=== PATIENT | male | born 1935 | race Caucasian/White ===

== ENCOUNTER 2020-06-22 10:30 | Outpatient (RCR) | payer MEDICARE, OTHER, SELFPAY ==
--- NOTE | 2020-06-07 07:53 | PT.OIE ---
Current Diagnoses Trochanteric bursitis, right hip (06/03/20) Trochanteric bursitis, left hip (06/03/20) Iliotibial band syndrome, right leg (06/03/20) Visit Care Team Role Provider Type Yasmin Yen Primary Care Provider Non-Staff Specialty: Medical Address: [address] , [place], [address] Email: Randall Reyna DO Attending Provider Non-Staff Referring Provider Specialty: Orthopedics Address: [address] [place] [address], [place], [address] Email: Physical Therapy Initial Evaluation PT-OP-A Visit Information Start: 06/06/20 13:57 Freq: Status: Active Protocol: Document 06/03/20 16:45 HH (Rec: 06/07/20 07:47 [email or web address]) Out-Patient Physical Therapy Visit Information Visit Information Visit Type Initial Evaluation Visit Start Time 16:45 Visit Stop Time 17:25 Total Visit Minutes 40 Visit Number 1 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 Symptoms started 3-4 months ago and his R calf and mandel tend to get sore after a long walk. He stated it feels like a strain and started at his calf first then slowly progress to his mandel recently. His symptoms has been getting worse after finishing a mile of walking and started having difficulty in driving move than 25 miles which he normally does once to twice a week. He denies any tingling and numbness sensation. Pt also had bilateral hip pain and was dx with bilateral bursitis who received cortisone bilaterally. He also had a R TKA previously. Pt likes to walk a mile a day and do semi squat exerecise as his home exercise program. Prior Treatments and Tests N/A Treatment Goals Patient/Caregiver Goals 1. to be able to walk without R leg pain 2. to be able to drive > 25 miles without R leg pain PT-OP-C Subjective Start: 06/06/20 13:57 Freq: Status: Active Protocol: Document 06/03/20 16:45 HH (Rec: 06/07/20 07:47 HH [email or web address]) Patient Questionnaires Lower Extremity Functional Scale LEFS Score 39 LEFS Impairment 40 to 59% Impaired (Score 32- 47) OP-PT Pain Assessment Location calf and mandel Pain Location Details R leg Intensity 3 Description Aching Frequency Frequent Pain Aggravating Factors Walking Pain Alleviating Factors Inactivity PT-OP-D Balance Start: 06/06/20 13:57 Freq: Status: Active Protocol: Document 06/03/20 16:45 HH (Rec: 06/06/20 14:22 [email or web address]) Balance Tests Single Limb Standing Single Limb- Right 0 Single Limb- Left 3 Other Other Balance Tests Performed significant R lateral trunk lean on RLE moderate L lateral trunk lean on LLE PT-OP-G Mobility & Gait Start: 06/06/20 13:57 Freq: Status: Active Protocol: Document 06/03/20 16:45 HH (Rec: 06/06/20 14:22 [email or web address]) OP Gait Assessment Gait Deviations General Gait Pattern Antalgic,Decreased Stride Length,Decreased Feet Clearance,Lateral Trunk Lean Comments Gait Comments +ve trendelenburg gait primarily on R hip. Significant L hip drop with R lateral trunk lean during RLE stance phase R foot clearance < L foot dec R heel strike and dec push on RLE PT-OP-H Neuro Start: 06/06/20 13:57 Freq: Status: Active Protocol: Document 06/03/20 16:45 HH (Rec: 06/06/20 14:22 HH [email or web address]) Deep Tendon Reflex & Clonus Assessment Deep Tendon Reflex Bilateral Achilles Deep Tendon Reflex 2+ Normal Bilateral Patellar Deep Tendon Reflex 1+ Diminished PT-OP-K Range of Motion Start: 06/06/20 13:57 Freq: Status: Active Protocol: Document 06/03/20 16:45 HH (Rec: 06/06/20 14:22 [email or web address]) Knee Goniometric Range of Motion Knee Right Knee ROM WFL Yes Patient Position Supine Extension Active (degrees) 3 Left Knee ROM WFL Yes Patient Position Supine Extension Active (degrees) 0 Ankle and Foot Goniometric Range of Motion Ankle and Foot Right Active Ankle/Foot ROM WFL Yes Left Active Ankle/Foot ROM WFL Yes PT-OP-L Special Tests Start: 06/06/20 13:57 Freq: Status: Active Protocol: Document 06/03/20 16:45 HH (Rec: 06/06/20 14:22 HH [email or web address]) Special Tests Hip Special Tests Trendelenberg Test Results +Ve on R PT-OP-M Strength Start: 06/06/20 13:57 Freq: Status: Active Protocol: Document 06/03/20 16:45 HH (Rec: 06/06/20 14:22 HH [email or web address]) Hip Strength Hip Manual Muscle Testing Right Flexion (L2) 4 Good Extension (S1) 4- Good- Abduction 3+ Fair+ Adduction 4- Good- External Rotation 4- Good- Left Flexion (L2) 4 Good Extension (S1) 4- Good- Abduction 4- Good- Adduction 4+ Good+ External Rotation 4 Good Internal Rotation 4 Good Knee Strength Knee Manual Muscle Testing Right Flexion (S2) 4+ Good+ Extension (L3) 4+ Good+ Left Flexion (S2) 4+ Good+ Extension (L3) 4+ Good+ Ankle/Foot Strength Ankle and Foot Manual Muscle Testing Left Dorsiflexion (L4) 4+ Good+ Plantarflexion (S1) 4+ Good+ Inversion 4+ Good+ Eversion (S1) 4+ Good+ Right Dorsiflexion (L4) 4+ Good+ Plantarflexion (S1) 4+ Good+ Inversion 4+ Good+ Eversion (S1) 4+ Good+ Comments tightness sensation noted at R calf PT-OP-Q Treatments Start: 06/06/20 13:57 Freq: Status: Active Protocol: Document 06/03/20 16:45 HH (Rec: 06/07/20 07:53 HH [email or web address]) Self-Care/Home Management Treatment Education Patient Education Home Exercise Program,Posture Other Education education on the importance of hip strength on single leg balance and gait mechanics. PT-OP-T Assessment and Plan Start: 06/06/20 13:57 Freq: Status: Active Protocol: Document 06/03/20 16:45 HH (Rec: 06/06/20 14:22 HH [email or web address]) Physical Therapy Assessment Rehab Potential Rehabilitation Potential Good Evaluation Complexity Number of Personal Factors/Comorbidities 1-2 Number of Body Systems Impaired 1-2 Clinical Presentation at Evaluation Stable Impairments Impairments Activity Tolerance,Balance, Functional Activities, Functional Mobility,Gait,Pain, Posture,ROM,Soft Tissue Mobility,Strength,Transfers Goals weak R hip Impairment weak R hip Short Term Goal (STG) Pt will improve 1/2 muscle grade of R hip stabilizers STG Duration 4 weeks Manager Immunology Goal (LTG) Pt will improve 1 full MMT grade of R hip stabilizer to optimize his gait efficiency and improve single leg balance LTG Duration 8 weeks driving Impairment pt has R leg pain after driving 25 miles [facility] Goal (LTG) pt will be pain and discomfort free for driving >25 miles to run his errands LTG Duration 8 weeks walking Impairment pt has RLE pain after his daily mile walk [facility] Goal (LTG) Pt will be pain and discomfort free for his daily one mile walk LTG Duration 8 weeks LEFS Impairment pt scores 39 on LEFs Short Term Goal (STG) Pt will score >50 and higher on LEFS STG Duration 4 weeks Manager Immunology Goal (LTG) pt will score >60 and higher on LEFS to improve his quality of life LTG Duration 8 weeks Assessment Summary Assessment This is a mod complexity for this 84 yo pleasant male here for calf and mandel pain primarily during walking with hx of R TKA. Upon assessment, pt presents mandel splint related symptoms who has significant weakness with R hip stabilizers (+ve trendelenburg sign) and R calf tightness. Dec R foot clearance (worse than L) and dec R heel strike and push off possibly d/t weak R hip abductors and lack of R full knee extension. This possibly increases muscular stress at anterior compartment of R leg . Pt will benefit from skilled therapy to improve his calf flexiblity, R hip stabilizer strength, RLE stability and strength, balance and gait quality in order for him to walk in community efficicently and without discomfort. Physical Therapy Plan Frequency and Duration Frequency of Treatment 2x/Week Duration of Treatment 8 weeks Plan of Care Start Date 06/06/20 Plan of Care End Date 08/05/20 Therapeutic Interventions Therapeutic Interventions Balance Training,Gait Training ,Home Exercise Program,Joint Mobilizations,Manual Therapy, Neuromuscular Re-education, Patient/Caregiver Education, Self-Care/Home Management, Taping,Therapeutic Activities, Therapeutic Exercises Modalities Cold Pack/Ice Massage,Electric Stimulation,Hot Packs Next Visit Focus/Plan Next Note Type Treatment Note Next Visit Plan can check single leg calf raise frequency for calf strength can check hip extension ROM give HEP: hip stabilizers strengthening in open chain, R TKE, calf raises, calf stretches
--- NOTE | 2020-06-07 07:54 | PT.OPPOC ---
Physical, Occupational & Speech Therapy At [facility] Current Diagnoses Trochanteric bursitis, right hip (06/03/20) Trochanteric bursitis, left hip (06/03/20) Iliotibial band syndrome, right leg (06/03/20) Visit Care Team Role Provider Type Yasmin Yen Primary Care Provider Non-Staff Specialty: Medical Address: [address], [place], [address] Email: Randall Reyna DO Attending Provider Non-Staff Referring Provider Specialty: Orthopedics Address: [address] [facility], [place], [address] Email: Plan Of Care PT-OP-T Assessment and Plan Start: 06/06/20 13:57 Freq: Status: Active Protocol: Document 06/03/20 16:45 (Rec: 06/06/20 14:22 HH [email or web address]) Physical Therapy Assessment Rehab Potential Rehabilitation Potential Good Evaluation Complexity Number of Personal Factors/Comorbidities 1-2 Number of Body Systems Impaired 1-2 Clinical Presentation at Evaluation Stable Impairments Impairments Activity Tolerance,Balance, Functional Activities, Functional Mobility,Gait,Pain, Posture,ROM,Soft Tissue Mobility,Strength,Transfers Goals weak R hip Impairment weak R hip Short Term Goal (STG) Pt will improve 1/2 muscle grade of R hip stabilizers STG Duration 4 weeks Tobacco Stemmer Goal (LTG) Pt will improve 1 full MMT grade of R hip stabilizer to optimize his gait efficiency and improve single leg balance LTG Duration 8 weeks driving Impairment pt has R leg pain after driving 25 miles [place] Goal (LTG) pt will be pain and discomfort free for driving >25 miles to run his errands LTG Duration 8 weeks walking Impairment pt has RLE pain after his daily mile walk [place] Goal (LTG) Pt will be pain and discomfort free for his daily one mile walk LTG Duration 8 weeks LEFS Impairment pt scores 39 on LEFs Short Term Goal (STG) Pt will score >50 and higher on LEFS STG Duration 4 weeks Half-Way Goal (LTG) pt will score >60 and higher on LEFS to improve his quality of life LTG Duration 8 weeks Assessment Summary Assessment This is a mod complexity for this 84 yo pleasant male here for calf and mandel pain primarily during walking with hx of R TKA. Upon assessment, pt presents mandel splint related symptoms who has significant weakness with R hip stabilizers (+ve trendelenburg sign) and R calf tightness. Dec R foot clearance (worse than L) and dec R heel strike and push off possibly d/t weak R hip abductors and lack of R full knee extension. This possibly increases muscular stress at anterior compartment of R leg . Pt will benefit from skilled therapy to improve his calf flexiblity, R hip stabilizer strength, RLE stability and strength, balance and gait quality in order for him to walk in community efficicently and without discomfort. Physical Therapy Plan Frequency and Duration Frequency of Treatment 2x/Week Duration of Treatment 8 weeks Plan of Care Start Date 06/06/20 Plan of Care End Date 08/05/20 Therapeutic Interventions Therapeutic Interventions Balance Training,Gait Training ,Home Exercise Program,Joint Mobilizations,Manual Therapy, Neuromuscular Re-education, Patient/Caregiver Education, Self-Care/Home Management, Taping,Therapeutic Activities, Therapeutic Exercises Modalities Cold Pack/Ice Massage,Electric Stimulation,Hot Packs Next Visit Focus/Plan Next Note Type Treatment Note Next Visit Plan can check single leg calf raise frequency for calf strength can check hip extension ROM give HEP: hip stabilizers strengthening in open chain, R TKE, calf raises, calf stretches Plan of Care Dates Plan of Care Start Date 06/06/20 Plan of Care End Date 08/05/20 Electronically Signed by: Ledy Parker PT 06/07/20 [id number] Please Sign and Return: I have reviewed this Plan of Care and certify that the skilled therapy services above are required to meet the patient?s needs. Physician Signature Date Printed Name and Credentials Clinical Instructor Signature Printed Name and Credentials
--- NOTE | 2020-06-07 09:45 | PT.OTN ---
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 Symptoms started 3-4 months ago and his R calf and mandel tend to get sore after a long walk. He stated it feels like a strain and started at his calf first then slowly progress to his mandle recently. His symptoms has been getting worse after finishing a mile of walking and started having difficulty in driving move than 25 miles which he normally does once to twice a week. He denies any tingling and numbness sensation. Pt also had bilateral hip pain and was dx with bilateral bursitis who received cortisone bilaterally. He also had a R TKA previously. Pt likes to walk a mile a day and do semi squat exerecise as his home exercise program. Prior Treatments and Tests N/A Treatment Goals Patient/Caregiver Goals 1. to be able to walk without R leg pain 2. to be able to drive > 25 miles without R leg pain PT-OP-C Subjective Start: 06/06/20 13:57 Freq: Status: Active Protocol: Document 06/07/20 09:01 SP (Rec: 06/07/20 10:00 SP [id number]) OP-PT Subjective Patient Comments Patient Comments Pt reports no complaints post last visit. Wants to get an HEP to help strengthen R thigh and leg. L mandel, lateral lower leg. PT-OP-D Balance Start: 06/06/20 13:57 Freq: Status: Active Protocol: Document 06/03/20 16:45 HH (Rec: 06/06/20 14:22 [email or web address]) Balance Tests Single Limb Standing Single Limb- Right 0 Single Limb- Left 3 Other Other Balance Tests Performed significant R lateral trunk lean on RLE moderate L lateral trunk lean on LLE PT-OP-G Mobility & Gait Start: 06/06/20 13:57 Freq: Status: Active Protocol: Document 06/03/20 16:45 HH (Rec: 06/06/20 14:22 [email or web address]) OP Gait Assessment Gait Deviations General Gait Pattern Antalgic,Decreased Stride Length,Decreased Feet Clearance,Lateral Trunk Lean Comments Gait Comments +ve trendelenburg gait primarily on R hip. Significant L hip drop with R lateral trunk lean during RLE stance phase R foot clearance < L foot dec R heel strike and dec push on RLE PT-OP-H Neuro Start: 06/06/20 13:57 Freq: Status: Active Protocol: Document 06/03/20 16:45 HH (Rec: 06/06/20 14:22 [email or web address]) Deep Tendon Reflex & Clonus Assessment Deep Tendon Reflex Bilateral Achilles Deep Tendon Reflex 2+ Normal Bilateral Patellar Deep Tendon Reflex 1+ Diminished PT-OP-K Range of Motion Start: 06/06/20 13:57 Freq: Status: Active Protocol: Document 06/03/20 16:45 HH (Rec: 06/06/20 14:22 [email or web address]) Knee Goniometric Range of Motion Knee Right Knee ROM WFL Yes Patient Position Supine Extension Active (degrees) 3 Left Knee ROM WFL Yes Patient Position Supine Extension Active (degrees) 0 Ankle and Foot Goniometric Range of Motion Ankle and Foot Right Active Ankle/Foot ROM WFL Yes Left Active Ankle/Foot ROM WFL Yes PT-OP-L Special Tests Start: 06/06/20 13:57 Freq: Status: Active Protocol: Document 06/03/20 16:45 HH (Rec: 06/06/20 14:22 [email or web address]) Special Tests Hip Special Tests Trendelenberg Test Results +Ve on R PT-OP-M Strength Start: 06/06/20 13:57 Freq: Status: Active Protocol: Document 06/03/20 16:45 HH (Rec: 06/06/20 14:22 HH [email or web address]) Hip Strength Hip Manual Muscle Testing Right Flexion (L2) 4 Good Extension (S1) 4- Good- Abduction 3+ Fair+ Adduction 4- Good- External Rotation 4- Good- Left Flexion (L2) 4 Good Extension (S1) 4- Good- Abduction 4- Good- Adduction 4+ Good+ External Rotation 4 Good Internal Rotation 4 Good Knee Strength Knee Manual Muscle Testing Right Flexion (S2) 4+ Good+ Extension (L3) 4+ Good+ Left Flexion (S2) 4+ Good+ Extension (L3) 4+ Good+ Ankle/Foot Strength Ankle and Foot Manual Muscle Testing Left Dorsiflexion (L4) 4+ Good+ Plantarflexion (S1) 4+ Good+ Inversion 4+ Good+ Eversion (S1) 4+ Good+ Right Dorsiflexion (L4) 4+ Good+ Plantarflexion (S1) 4+ Good+ Inversion 4+ Good+ Eversion (S1) 4+ Good+ Comments tightness sensation noted at R calf PT-OP-Q Treatments Start: 06/06/20 13:57 Freq: Status: Active Protocol: Document 06/07/20 09:01 SP (Rec: 06/07/20 10:00 SP [id number]) Cardio Equipment Recumbent Elliptical (VitalsGuard) Duration (Minutes) 6 Resistance 2 Seat Position 11 Therapeutic Exercises Sitting Exercises stick rolling Sitting Exercise Name ITB, personeal, tibialis, HS Side right Equipment Used rolling stick Reps/Minutes 1 min each area Comments pressure to tolerance DF, PF, EV R ankle band Side right Resistance L2 Reps/Minutes 10 Comments cued slow controlled con/ecc, proper set up/ form LAQ Side right Resistance AROM Reps/Minutes 10 Comments add HEP, cued slow controlled con/eccentric and thigh on table Standing Exercises sit to stands Standing Exercise Name arms across chest Side bilateral Resistance AOM Reps/Minutes x5 Comments cued slow descent PT-OP-T Assessment and Plan Start: 06/06/20 13:57 Freq: Status: Active Protocol: Document 06/07/20 09:01 SP (Rec: 06/07/20 10:00 SP [id number]) Physical Therapy Assessment Goals weak R hip Impairment weak R hip Short Term Goal (STG) Pt will improve 1/2 muscle grade of R hip stabilizers STG Duration 4 weeks Longterm Goal (LTG) Pt will improve 1 full MMT grade of R hip stabilizer to optimize his gait efficiency and improve single leg balance LTG Duration 8 weeks driving Impairment pt has R leg pain after driving 25 miles Longterm Goal (LTG) pt will be pain and discomfort free for driving >25 miles to run his errands LTG Duration 8 weeks walking Impairment pt has RLE pain after his daily mile walk [employer] Frequency Design Engineer Goal (LTG) Pt will be pain and discomfort free for his daily one mile walk LTG Duration 8 weeks LEFS Impairment pt scores 39 on LEFs Short Term Goal (STG) Pt will score >50 and higher on LEFS STG Duration 4 weeks [employer] Frequency Design Engineer Goal (LTG) pt will score >60 and higher on LEFS to improve his quality of life LTG Duration 8 weeks Assessment Summary Assessment Pt tolerated ther ex well. Pt reported HEP added today good focus for his goals of strengthening R LE. Noted compensations during DF and EV of R hip abd, and HS tension during LAQ, cuing for proper set up, slow controlled movement concentric/ eccentric directions for focused muscle activation. Good tolerance of self rolling to decrease ITB, DF flexibility. Physical Therapy Plan Frequency and Duration Frequency of Treatment 2x/Week Duration of Treatment 8 weeks Plan of Care Start Date 06/06/20 Plan of Care End Date 08/05/20 Therapeutic Interventions Therapeutic Interventions Balance Training,Gait Training ,Home Exercise Program,Joint Mobilizations,Manual Therapy, Neuromuscular Re-education, Patient/Caregiver Education, Self-Care/Home Management, Taping,Therapeutic Activities, Therapeutic Exercises Modalities Cold Pack/Ice Massage,Electric Stimulation,Hot Packs Next Visit Focus/Plan Next Note Type Treatment Note Next Visit Plan Assess response to last tx and added HEP. Next tx: can check single leg calf raise frequency for calf strength can check hip extension ROM give HEP: hip stabilizers strengthening in open chain, R TKE, calf raises, calf stretches
--- NOTE | 2020-06-10 09:48 | PT.OTN ---
Current Diagnoses Trochanteric bursitis, right hip (06/10/20) Trochanteric bursitis, left hip (06/10/20) Iliotibial band syndrome, right leg (06/10/20) Physical Therapy Treatment Note PT-OP-A Visit Information Start: 06/06/20 13:57 Freq: Status: Active Protocol: Document 06/10/20 08:58 HH (Rec: 06/10/20 09:47 [id number]) Out-Patient Physical Therapy Visit Information Visit Information Visit Type Treatment Note Visit Start Time 09:01 Visit Stop Time 09:45 Total Visit Minutes 44 Visit Number 3 Number of COLLEGE INTERN Visits 0 PT-OP-B Current Condition Start: 06/06/20 13:57 Freq: Status: Active Protocol: Document 06/03/20 16:45 HH (Rec: 06/07/20 07:47 [email or web address]) Current Condition History of Current Condition Onset Date 3-4 months ago Current Complaints calf and mandel pain upon walking, poor balance History of Current Condition Pt is a 84yo male here for R calf and mandel pain upon walking. Symptoms started 3-4 months ago and his R calf and mandel tend to get sore after a long walk. He stated it feels like a strain and started at his calf first then slowly progress to his mandel recently. His symptoms has been getting worse after finishing a mile of walking and started having difficulty in driving move than 25 miles which he normally does once to twice a week. He denies any tingling and numbness sensation. Pt also had bilateral hip pain and was dx with bilateral bursitis who received cortisone bilaterally. He also had a R TKA previously. Pt likes to walk a mile a day and do semi squat exerecise as his home exercise program. Prior Treatments and Tests N/A Treatment Goals Patient/Caregiver Goals 1. to be able to walk without R leg pain 2. to be able to drive > 25 miles without R leg pain PT-OP-C Subjective Start: 06/06/20 13:57 Freq: Status: Active Protocol: Document 06/10/20 08:58 HH (Rec: 06/10/20 09:47 [email or web address]) OP-PT Subjective Patient Comments Patient Comments Elizabeth been doing all my exercises and i started feeling my legs working. Patient Reported Progress Improving PT-OP-D Balance Start: 06/06/20 13:57 Freq: Status: Active Protocol: Document 06/03/20 16:45 HH (Rec: 06/06/20 14:22 [email or web address]) Balance Tests Single Limb Standing Single Limb- Right 0 Single Limb- Left 3 Other Other Balance Tests Performed significant R lateral trunk lean on RLE moderate L lateral trunk lean on LLE PT-OP-G Mobility & Gait Start: 06/06/20 13:57 Freq: Status: Active Protocol: Document 06/03/20 16:45 HH (Rec: 06/06/20 14:22 [email or web address]) OP Gait Assessment Gait Deviations General Gait Pattern Antalgic,Decreased Stride Length,Decreased Feet Clearance,Lateral Trunk Lean Comments Gait Comments +ve trendelenburg gait primarily on R hip. Significant L hip drop with R lateral trunk lean during RLE stance phase R foot clearance < L foot dec R heel strike and dec push on RLE PT-OP-H Neuro Start: 06/06/20 13:57 Freq: Status: Active Protocol: Document 06/03/20 16:45 HH (Rec: 06/06/20 14:22 [email or web address]) Deep Tendon Reflex & Clonus Assessment Deep Tendon Reflex Bilateral Achilles Deep Tendon Reflex 2+ Normal Bilateral Patellar Deep Tendon Reflex 1+ Diminished PT-OP-K Range of Motion Start: 06/06/20 13:57 Freq: Status: Active Protocol: Document 06/03/20 16:45 HH (Rec: 06/06/20 14:22 [email or web address]) Knee Goniometric Range of Motion Knee Right Knee ROM WFL Yes Patient Position Supine Extension Active (degrees) 3 Left Knee ROM WFL Yes Patient Position Supine Extension Active (degrees) 0 Ankle and Foot Goniometric Range of Motion Ankle and Foot Right Active Ankle/Foot ROM WFL Yes Left Active Ankle/Foot ROM WFL Yes PT-OP-L Special Tests Start: 06/06/20 13:57 Freq: Status: Active Protocol: Document 06/03/20 16:45 HH (Rec: 06/06/20 14:22 [email or web address]) Special Tests Hip Special Tests Trendelenberg Test Results +Ve on R PT-OP-M Strength Start: 06/06/20 13:57 Freq: Status: Active Protocol: Document 06/03/20 16:45 HH (Rec: 06/06/20 14:22 [email or web address]) Hip Strength Hip Manual Muscle Testing Right Flexion (L2) 4 Good Extension (S1) 4- Good- Abduction 3+ Fair+ Adduction 4- Good- External Rotation 4- Good- Left Flexion (L2) 4 Good Extension (S1) 4- Good- Abduction 4- Good- Adduction 4+ Good+ External Rotation 4 Good Internal Rotation 4 Good Knee Strength Knee Manual Muscle Testing Right Flexion (S2) 4+ Good+ Extension (L3) 4+ Good+ Left Flexion (S2) 4+ Good+ Extension (L3) 4+ Good+ Ankle/Foot Strength Ankle and Foot Manual Muscle Testing Left Dorsiflexion (L4) 4+ Good+ Plantarflexion (S1) 4+ Good+ Inversion 4+ Good+ Eversion (S1) 4+ Good+ Right Dorsiflexion (L4) 4+ Good+ Plantarflexion (S1) 4+ Good+ Inversion 4+ Good+ Eversion (S1) 4+ Good+ Comments tightness sensation noted at R calf PT-OP-Q Treatments Start: 06/06/20 13:57 Freq: Status: Active Protocol: Document 06/10/20 08:58 (Rec: 06/10/20 09:47 [id number]) Therapeutic Exercises Supine Exercises hamstring stretch Side bilateral Reps/Minutes 5 sec hold x 10 Comments significant tightness noted. Sidelying Exercises clamshell Side bilateral Reps/Minutes 8 x 2 Comments LLE is easier for pt, cues on avoiding lumbar rotatoin on RLE Sitting Exercises LAQ Side bilateral Reps/Minutes 10 x 2 Comments R hamstrings tightness noted, cues on prevent trunk extension Standing Exercises sagittal place weight shifting Standing Exercise Name A<>P Side bilateral Reps/Minutes 8 x2 calf raise Side bilateral Reps/Minutes 8 x2 Manual Therapy Treatment Soft Tissue Mobilization hamstrings Mobilization Type Rolling,Sustained Pressure, Trigger Point Release Intensity/Depth Moderate Body Position Hooklying ant tib Mobilization Type Rolling,Sustained Pressure, Trigger Point Release Intensity/Depth Moderate Body Position Supine PT-OP-T Assessment and Plan Start: 06/06/20 13:57 Freq: Status: Active Protocol: Document 06/10/20 08:58 (Rec: 06/10/20 09:47 [id number]) Physical Therapy Assessment Goals weak R hip Impairment weak R hip Short Term Goal (STG) Pt will improve 1/2 muscle grade of R hip stabilizers STG Duration 4 weeks Photographic Restorer Goal (LTG) Pt will improve 1 full MMT grade of R hip stabilizer to optimize his gait efficiency and improve single leg balance LTG Duration 8 weeks driving Impairment pt has R leg pain after driving 25 miles Senior Care Goal (LTG) pt will be pain and discomfort free for driving >25 miles to run his errands LTG Duration 8 weeks walking Impairment pt has RLE pain after his daily mile walk Senior Care Goal (LTG) Pt will be pain and discomfort free for his daily one mile walk LTG Duration 8 weeks LEFS Impairment pt scores 39 on LEFs Short Term Goal (STG) Pt will score >50 and higher on LEFS STG Duration 4 weeks Senior Care Goal (LTG) pt will score >60 and higher on LEFS to improve his quality of life LTG Duration 8 weeks Assessment Summary Assessment Significant posterior chain tightness noted that pt tends to rock backward during LAQ and supine hamstring stretch. Pt also got fatigue easily with LE exercises. Added clamshell to HEP for R hip strengthening. Physical Therapy Plan Next Visit Focus/Plan Next Note Type Treatment Note Next Visit Plan Assess response to last tx and added HEP. can check hip extension ROM give HEP: hip stabilizers strengthening in open chain, R TKE, calf raises, calf stretches, R hip strengthening, post chain flexibility.
--- NOTE | 2020-06-15 11:19 | PT.OTN ---
Current Diagnoses Trochanteric bursitis, right hip (06/15/20) Trochanteric bursitis, left hip (06/15/20) Iliotibial band syndrome, right leg (06/15/20) Physical Therapy Treatment Note PT-OP-A Visit Information Start: 06/06/20 13:57 Freq: Status: Active Protocol: Document 06/15/20 10:30 HH (Rec: 06/15/20 11:19 [id number]) Out-Patient Physical Therapy Visit Information Visit Information Visit Type Treatment Note Visit Start Time 10:30 Visit Stop Time 11:15 Total Visit Minutes 45 Visit Number 4 Number of ELECTRICAL MECHANIC Visits 0 PT-OP-B Current Condition Start: 06/06/20 13:57 Freq: Status: Active Protocol: Document 06/03/20 16:45 HH (Rec: 06/07/20 07:47 HH [email or web address]) Current Condition History of Current Condition Onset Date 3-4 months ago Current Complaints calf and mandel pain upon walking, poor balance History of Current Condition Pt is a 84yo male here for R calf and mandel pain upon walking. Symptoms started 3-4 months ago and his R calf and mandel tend to get sore after a long walk. He stated it feels like a strain and started at his calf first then slowly progress to his mandel recently. His symptoms has been getting worse after finishing a mile of walking and started having difficulty in driving move than 25 miles which he normally does once to twice a week. He denies any tingling and numbness sensation. Pt also had bilateral hip pain and was dx with bilateral bursitis who received cortisone bilaterally. He also had a R TKA previously. Pt likes to walk a mile a day and do semi squat exerecise as his home exercise program. Prior Treatments and Tests N/A Treatment Goals Patient/Caregiver Goals 1. to be able to walk without R leg pain 2. to be able to drive > 25 miles without R leg pain PT-OP-C Subjective Start: 06/06/20 13:57 Freq: Status: Active Protocol: Document 06/15/20 10:30 HH (Rec: 06/15/20 11:19 [id number]) OP-PT Subjective Patient Comments Patient Comments Elizabeth been doing all my exercises, I started walking 4 blocks every day since last week and i have no discomfort on my R leg. Patient Reported Progress Improving PT-OP-D Balance Start: 06/06/20 13:57 Freq: Status: Active Protocol: Document 06/03/20 16:45 HH (Rec: 06/06/20 14:22 [email or web address]) Balance Tests Single Limb Standing Single Limb- Right 0 Single Limb- Left 3 Other Other Balance Tests Performed significant R lateral trunk lean on RLE moderate L lateral trunk lean on LLE PT-OP-G Mobility & Gait Start: 06/06/20 13:57 Freq: Status: Active Protocol: Document 06/03/20 16:45 HH (Rec: 06/06/20 14:22 [email or web address]) OP Gait Assessment Gait Deviations General Gait Pattern Antalgic,Decreased Stride Length,Decreased Feet Clearance,Lateral Trunk Lean Comments Gait Comments +ve trendelenburg gait primarily on R hip. Significant L hip drop with R lateral trunk lean during RLE stance phase R foot clearance < L foot dec R heel strike and dec push on RLE PT-OP-H Neuro Start: 06/06/20 13:57 Freq: Status: Active Protocol: Document 06/03/20 16:45 HH (Rec: 06/06/20 14:22 [email or web address]) Deep Tendon Reflex & Clonus Assessment Deep Tendon Reflex Bilateral Achilles Deep Tendon Reflex 2+ Normal Bilateral Patellar Deep Tendon Reflex 1+ Diminished PT-OP-K Range of Motion Start: 06/06/20 13:57 Freq: Status: Active Protocol: Document 06/03/20 16:45 HH (Rec: 06/06/20 14:22 [email or web address]) Knee Goniometric Range of Motion Knee Right Knee ROM WFL Yes Patient Position Supine Extension Active (degrees) 3 Left Knee ROM WFL Yes Patient Position Supine Extension Active (degrees) 0 Ankle and Foot Goniometric Range of Motion Ankle and Foot Right Active Ankle/Foot ROM WFL Yes Left Active Ankle/Foot ROM WFL Yes PT-OP-L Special Tests Start: 06/06/20 13:57 Freq: Status: Active Protocol: Document 06/03/20 16:45 HH (Rec: 06/06/20 14:22 [email or web address]) Special Tests Hip Special Tests Trendelenberg Test Results +Ve on R PT-OP-M Strength Start: 06/06/20 13:57 Freq: Status: Active Protocol: Document 06/03/20 16:45 HH (Rec: 06/06/20 14:22 HH [email or web address]) Hip Strength Hip Manual Muscle Testing Right Flexion (L2) 4 Good Extension (S1) 4- Good- Abduction 3+ Fair+ Adduction 4- Good- External Rotation 4- Good- Left Flexion (L2) 4 Good Extension (S1) 4- Good- Abduction 4- Good- Adduction 4+ Good+ External Rotation 4 Good Internal Rotation 4 Good Knee Strength Knee Manual Muscle Testing Right Flexion (S2) 4+ Good+ Extension (L3) 4+ Good+ Left Flexion (S2) 4+ Good+ Extension (L3) 4+ Good+ Ankle/Foot Strength Ankle and Foot Manual Muscle Testing Left Dorsiflexion (L4) 4+ Good+ Plantarflexion (S1) 4+ Good+ Inversion 4+ Good+ Eversion (S1) 4+ Good+ Right Dorsiflexion (L4) 4+ Good+ Plantarflexion (S1) 4+ Good+ Inversion 4+ Good+ Eversion (S1) 4+ Good+ Comments tightness sensation noted at R calf PT-OP-Q Treatments Start: 06/06/20 13:57 Freq: Status: Active Protocol: Document 06/15/20 10:30 HH (Rec: 06/15/20 11:19 HH [id number]) Cardio Equipment Recumbent Stepper (Sci-Fit) Duration (Minutes) 6 Resistance 3 Seat Position 3 Gym Equipment Shuttle Recovery SL squat Details SL squat Resistance #50 Shuttle Recovery Platform Stable Reps/Time 10 x2 Therapeutic Exercises Supine Exercises hamstring stretch Side bilateral Reps/Minutes 5 sec hold x 10 Comments significant tightness noted. Sidelying Exercises clamshell Side bilateral Reps/Minutes 8 x 2 Comments LLE is easier for pt, cues on avoiding lumbar rotatoin on RLE Standing Exercises marching in plcae Standing Exercise Name on almendarez pad without support Side bilateral Equipment Used almendarez pad Reps/Minutes 2 mins Comments slight marching in place ankle board Standing Exercise Name DF and PF Side bilateral Equipment Used ankle board Reps/Minutes 2 mins Comments unsupported sagittal place weight shifting Standing Exercise Name A<>P staggered stance to tap pole Side bilateral Reps/Minutes 20 x 2 Comments RLE is less stable calf raise Side bilateral Reps/Minutes 8 x2 Manual Therapy Treatment Soft Tissue Mobilization R gluteal Body Location R glute med, max and piriformis Mobilization Type Sustained Pressure,Trigger Point Release Intensity/Depth Moderate Body Position Sidelying PT-OP-T Assessment and Plan Start: 06/06/20 13:57 Freq: Status: Active Protocol: Document 06/15/20 10:30 HH (Rec: 06/15/20 11:19 HH [id number]) Physical Therapy Assessment Goals weak R hip Impairment weak R hip Short Term Goal (STG) Pt will improve 1/2 muscle grade of R hip stabilizers STG Duration 4 weeks Furniture Refinisher Goal (LTG) Pt will improve 1 full MMT grade of R hip stabilizer to optimize his gait efficiency and improve single leg balance LTG Duration 8 weeks driving Impairment pt has R leg pain after driving 25 miles Jail Goal (LTG) pt will be pain and discomfort free for driving >25 miles to run his errands LTG Duration 8 weeks walking Impairment pt has RLE pain after his daily mile walk Jail Goal (LTG) Pt will be pain and discomfort free for his daily one mile walk LTG Duration 8 weeks LEFS Impairment pt scores 39 on LEFs Short Term Goal (STG) Pt will score >50 and higher on LEFS STG Duration 4 weeks Jail Goal (LTG) pt will score >60 and higher on LEFS to improve his quality of life LTG Duration 8 weeks Assessment Summary Assessment Pt cont progress and started his daily walking rountine up to 4 blocks without discomfort . There's noticeable muscle tenderness at R glutes and piriformis. Will cont progress as karine and focus on R hip stabilizers strengthening. will add gait training to address trendelenburg sign. Physical Therapy Plan Next Visit Focus/Plan Next Note Type Treatment Note Next Visit Plan Assess response to last tx and added HEP for R hip stability . can check hip extension ROM give HEP: hip stabilizers strengthening in open chain, R TKE, calf raises, calf stretches, R hip strengthening, post chain flexibility. gait training
--- NOTE | 2020-06-18 09:05 | PT.OTN ---
Current Diagnoses Trochanteric bursitis, right hip (06/18/20) Trochanteric bursitis, left hip (06/18/20) Iliotibial band syndrome, right leg (06/18/20) Physical Therapy Treatment Note PT-OP-A Visit Information Start: 06/06/20 13:57 Freq: Status: Active Protocol: Document 06/18/20 08:10 SP (Rec: 06/18/20 11:18 SP [id number]) Out-Patient Physical Therapy Visit Information Visit Information Visit Type Treatment Note Visit Start Time 08:10 Visit Stop Time 09:05 Total Visit Minutes 55 Visit Number 5 Number of BREAKER UP MACHINE OPERATOR Visits 1 PT-OP-B Current Condition Start: 06/06/20 13:57 Freq: Status: Active Protocol: Document 06/03/20 16:45 HH (Rec: 06/07/20 07:47 HH [email or web address]) Current Condition History of Current Condition Onset Date 3-4 months ago Current Complaints calf and mandel pain upon walking, poor balance History of Current Condition Pt is a 84yo male here for R calf and mandel pain upon walking. Symptoms started 3-4 months ago and his R calf and mandel tend to get sore after a long walk. He stated it feels like a strain and started at his calf first then slowly progress to his mandel recently. His symptoms has been getting worse after finishing a mile of walking and started having difficulty in driving move than 25 miles which he normally does once to twice a week. He denies any tingling and numbness sensation. Pt also had bilateral hip pain and was dx with bilateral bursitis who received cortisone bilaterally. He also had a R TKA previously. Pt likes to walk a mile a day and do semi squat exerecise as his home exercise program. Prior Treatments and Tests N/A Treatment Goals Patient/Caregiver Goals 1. to be able to walk without R leg pain 2. to be able to drive > 25 miles without R leg pain PT-OP-C Subjective Start: 06/06/20 13:57 Freq: Status: Active Protocol: Document 06/18/20 08:10 SP (Rec: 06/18/20 11:18 SP [id number]) OP-PT Subjective Patient Comments Patient Comments Pt stated is actually walking about [address] PT-OP-D Balance Start: 06/06/20 13:57 Freq: Status: Active Protocol: Document 06/03/20 16:45 HH (Rec: 06/06/20 14:22 [email or web address]) Balance Tests Single Limb Standing Single Limb- Right 0 Single Limb- Left 3 Other Other Balance Tests Performed significant R lateral trunk lean on RLE moderate L lateral trunk lean on LLE PT-OP-G Mobility & Gait Start: 06/06/20 13:57 Freq: Status: Active Protocol: Document 06/03/20 16:45 HH (Rec: 06/06/20 14:22 [email or web address]) OP Gait Assessment Gait Deviations General Gait Pattern Antalgic,Decreased Stride Length,Decreased Feet Clearance,Lateral Trunk Lean Comments Gait Comments +ve trendelenburg gait primarily on R hip. Significant L hip drop with R lateral trunk lean during RLE stance phase R foot clearance < L foot dec R heel strike and dec push on RLE PT-OP-H Neuro Start: 06/06/20 13:57 Freq: Status: Active Protocol: Document 06/03/20 16:45 HH (Rec: 06/06/20 14:22 [email or web address]) Deep Tendon Reflex & Clonus Assessment Deep Tendon Reflex Bilateral Achilles Deep Tendon Reflex 2+ Normal Bilateral Patellar Deep Tendon Reflex 1+ Diminished PT-OP-K Range of Motion Start: 06/06/20 13:57 Freq: Status: Active Protocol: Document 06/03/20 16:45 HH (Rec: 06/06/20 14:22 [email or web address]) Knee Goniometric Range of Motion Knee Right Knee ROM WFL Yes Patient Position Supine Extension Active (degrees) 3 Left Knee ROM WFL Yes Patient Position Supine Extension Active (degrees) 0 Ankle and Foot Goniometric Range of Motion Ankle and Foot Right Active Ankle/Foot ROM WFL Yes Left Active Ankle/Foot ROM WFL Yes PT-OP-L Special Tests Start: 06/06/20 13:57 Freq: Status: Active Protocol: Document 06/03/20 16:45 HH (Rec: 06/06/20 14:22 [email or web address]) Special Tests Hip Special Tests Trendelenberg Test Results +Ve on R PT-OP-M Strength Start: 06/06/20 13:57 Freq: Status: Active Protocol: Document 06/03/20 16:45 HH (Rec: 06/06/20 14:22 HH [email or web address]) Hip Strength Hip Manual Muscle Testing Right Flexion (L2) 4 Good Extension (S1) 4- Good- Abduction 3+ Fair+ Adduction 4- Good- External Rotation 4- Good- Left Flexion (L2) 4 Good Extension (S1) 4- Good- Abduction 4- Good- Adduction 4+ Good+ External Rotation 4 Good Internal Rotation 4 Good Knee Strength Knee Manual Muscle Testing Right Flexion (S2) 4+ Good+ Extension (L3) 4+ Good+ Left Flexion (S2) 4+ Good+ Extension (L3) 4+ Good+ Ankle/Foot Strength Ankle and Foot Manual Muscle Testing Left Dorsiflexion (L4) 4+ Good+ Plantarflexion (S1) 4+ Good+ Inversion 4+ Good+ Eversion (S1) 4+ Good+ Right Dorsiflexion (L4) 4+ Good+ Plantarflexion (S1) 4+ Good+ Inversion 4+ Good+ Eversion (S1) 4+ Good+ Comments tightness sensation noted at R calf PT-OP-Q Treatments Start: 06/06/20 13:57 Freq: Status: Active Protocol: Document 06/18/20 08:10 SP (Rec: 06/18/20 11:18 SP [id number]) Cardio Equipment Recumbent Stepper (Sci-Fit) Duration (Minutes) 6 Resistance 3 Seat Position 11 Gym Equipment Shuttle Recovery SL squat Details SL squat Resistance #50 Shuttle Recovery Platform Stable Reps/Time 10 x2 Therapeutic Exercises Supine Exercises hamstring stretch Side bilateral Equipment Used strap Reps/Minutes 30 x2 Comments significant tightness noted, cued knee ext/ PF awarness for HS focus Sidelying Exercises clamshell Side bilateral Equipment Used Lv 1 Reps/Minutes 10 x 2 Comments B fairly equal for pt, cues on avoiding lumbar rotatoin on RLE Sitting Exercises glut/ PF stretch Sitting Exercise Name IR/ ER Reps/Minutes 20sec hold x2 Comments cued ease in/out and gentle support, no over pressure to hip Standing Exercises marching in plcae Standing Exercise Name on almendarez pad without support Side bilateral Equipment Used almendarez pad, at //bar Reps/Minutes 2 mins Comments slight marching in place sagittal place weight shifting Standing Exercise Name A<>P staggered stance to tap pole Side bilateral Equipment Used @ //bar Reps/Minutes 20 x 2 Comments LLE is less stable, cued upright posture and quad facilitation calf raise Side bilateral Equipment Used rail, MARSHALL Reps/Minutes 8 x2 Comments cued contact other LE on floor PT-OP-T Assessment and Plan Start: 06/06/20 13:57 Freq: Status: Active Protocol: Document 06/18/20 08:10 SP (Rec: 06/18/20 11:18 SP [id number]) Physical Therapy Assessment Goals weak R hip Impairment weak R hip Short Term Goal (STG) Pt will improve 1/2 muscle grade of R hip stabilizers STG Duration 4 weeks Centrifugal Chiller Technician Goal (LTG) Pt will improve 1 full MMT grade of R hip stabilizer to optimize his gait efficiency and improve single leg balance LTG Duration 8 weeks driving Impairment pt has R leg pain after driving 25 miles Centrifugal Chiller Technician Goal (LTG) pt will be pain and discomfort free for driving >25 miles to run his errands LTG Duration 8 weeks walking Impairment pt has RLE pain after his daily mile walk Half-Way Goal (LTG) Pt will be pain and discomfort free for his daily one mile walk LTG Duration 8 weeks LEFS Impairment pt scores 39 on LEFs Short Term Goal (STG) Pt will score >50 and higher on LEFS STG Duration 4 weeks Centrifugal Chiller Technician Goal (LTG) pt will score >60 and higher on LEFS to improve his quality of life LTG Duration 8 weeks Assessment Summary Assessment Tx focused on added LE flexibility supine/standing/ seated, hip strengthening with HEP review. Cued for glut facilitation and level pelvis during uneven marching with improvement noted and good feedback self awareness. Will continue to progress strengthening. Physical Therapy Plan Frequency and Duration Frequency of Treatment 2x/Week Duration of Treatment 8 weeks Plan of Care Start Date 06/06/20 Plan of Care End Date 08/05/20 Therapeutic Interventions Therapeutic Interventions Balance Training,Gait Training ,Home Exercise Program,Joint Mobilizations,Manual Therapy, Neuromuscular Re-education, Patient/Caregiver Education, Self-Care/Home Management, Taping,Therapeutic Activities, Therapeutic Exercises Modalities Cold Pack/Ice Massage,Electric Stimulation,Hot Packs Next Visit Focus/Plan Next Note Type Treatment Note Next Visit Plan Assess response to last tx, added HEP for R hip stretching and HEP review added Tb loop to clam shells. Continue per PT POC: Can check hip extension ROM give HEP: hip stabilizers strengthening in open chain, R TKE, calf raises, calf stretches, R hip strengthening, post chain flexibility. gait training
--- NOTE | 2020-06-22 10:58 | PT.OTN ---
Current Diagnoses Trochanteric bursitis, right hip (06/22/20) Trochanteric bursitis, left hip (06/22/20) Iliotibial band syndrome, right leg (06/22/20) Physical Therapy Treatment Note PT-OP-A Visit Information Start: 06/06/20 13:57 Freq: Status: Active Protocol: Document 06/22/20 10:34 HH (Rec: 06/22/20 10:58 [id number]) Out-Patient Physical Therapy Visit Information Visit Information Visit Type Discharge Summary Visit Start Time 10:42 Visit Stop Time 10:55 Total Visit Minutes 13 Visit Number 6 Number of INSURANCE CONSULTANT Visits 0 PT-OP-B Current Condition Start: 06/06/20 13:57 Freq: Status: Active Protocol: Document 06/03/20 16:45 HH (Rec: 06/07/20 07:47 [email or web address]) Current Condition History of Current Condition Onset Date 3-4 months ago Current Complaints calf and mandel pain upon walking, poor balance History of Current Condition Pt is a 84yo male here for R calf and mandel pain upon walking. Symptoms started 3-4 months ago and his R calf and mandel tend to get sore after a long walk. He stated it feels like a strain and started at his calf first then slowly progress to his mandel recently. His symptoms has been getting worse after finishing a mile of walking and started having difficulty in driving move than 25 miles which he normally does once to twice a week. He denies any tingling and numbness sensation. Pt also had bilateral hip pain and was dx with bilateral bursitis who received cortisone bilaterally. He also had a R TKA previously. Pt likes to walk a mile a day and do semi squat exerecise as his home exercise program. Prior Treatments and Tests N/A Treatment Goals Patient/Caregiver Goals 1. to be able to walk without R leg pain 2. to be able to drive > 25 miles without R leg pain PT-OP-C Subjective Start: 06/06/20 13:57 Freq: Status: Active Protocol: Document 06/22/20 10:34 HH (Rec: 06/22/20 10:58 [id number]) OP-PT Subjective Patient Comments Patient Comments Im doing so much better and i did a 4 hours driving trip this weekend and i had no problem. And i have been walking more as well. I think i am ready to be d/c . Patient Reported Progress Improving PT-OP-D Balance Start: 06/06/20 13:57 Freq: Status: Active Protocol: Document 06/03/20 16:45 HH (Rec: 06/06/20 14:22 [email or web address]) Balance Tests Single Limb Standing Single Limb- Right 0 Single Limb- Left 3 Other Other Balance Tests Performed significant R lateral trunk lean on RLE moderate L lateral trunk lean on LLE PT-OP-G Mobility & Gait Start: 06/06/20 13:57 Freq: Status: Active Protocol: Document 06/03/20 16:45 HH (Rec: 06/06/20 14:22 [email or web address]) OP Gait Assessment Gait Deviations General Gait Pattern Antalgic,Decreased Stride Length,Decreased Feet Clearance,Lateral Trunk Lean Comments Gait Comments +ve trendelenburg gait primarily on R hip. Significant L hip drop with R lateral trunk lean during RLE stance phase R foot clearance < L foot dec R heel strike and dec push on RLE PT-OP-H Neuro Start: 06/06/20 13:57 Freq: Status: Active Protocol: Document 06/03/20 16:45 HH (Rec: 06/06/20 14:22 [email or web address]) Deep Tendon Reflex & Clonus Assessment Deep Tendon Reflex Bilateral Achilles Deep Tendon Reflex 2+ Normal Bilateral Patellar Deep Tendon Reflex 1+ Diminished PT-OP-K Range of Motion Start: 06/06/20 13:57 Freq: Status: Active Protocol: Document 06/03/20 16:45 HH (Rec: 06/06/20 14:22 [email or web address]) Knee Goniometric Range of Motion Knee Right Knee ROM WFL Yes Patient Position Supine Extension Active (degrees) 3 Left Knee ROM WFL Yes Patient Position Supine Extension Active (degrees) 0 Ankle and Foot Goniometric Range of Motion Ankle and Foot Right Active Ankle/Foot ROM WFL Yes Left Active Ankle/Foot ROM WFL Yes PT-OP-L Special Tests Start: 06/06/20 13:57 Freq: Status: Active Protocol: Document 06/03/20 16:45 HH (Rec: 06/06/20 14:22 [email or web address]) Special Tests Hip Special Tests Trendelenberg Test Results +Ve on R PT-OP-M Strength Start: 06/06/20 13:57 Freq: Status: Active Protocol: Document 06/03/20 16:45 HH (Rec: 06/06/20 14:22 [email or web address]) Hip Strength Hip Manual Muscle Testing Right Flexion (L2) 4 Good Extension (S1) 4- Good- Abduction 3+ Fair+ Adduction 4- Good- External Rotation 4- Good- Left Flexion (L2) 4 Good Extension (S1) 4- Good- Abduction 4- Good- Adduction 4+ Good+ External Rotation 4 Good Internal Rotation 4 Good Knee Strength Knee Manual Muscle Testing Right Flexion (S2) 4+ Good+ Extension (L3) 4+ Good+ Left Flexion (S2) 4+ Good+ Extension (L3) 4+ Good+ Ankle/Foot Strength Ankle and Foot Manual Muscle Testing Left Dorsiflexion (L4) 4+ Good+ Plantarflexion (S1) 4+ Good+ Inversion 4+ Good+ Eversion (S1) 4+ Good+ Right Dorsiflexion (L4) 4+ Good+ Plantarflexion (S1) 4+ Good+ Inversion 4+ Good+ Eversion (S1) 4+ Good+ Comments tightness sensation noted at R calf PT-OP-Q Treatments Start: 06/06/20 13:57 Freq: Status: Active Protocol: Document 06/22/20 10:34 (Rec: 06/22/20 10:58 [id number]) Self-Care/Home Management Treatment Education Patient Education Home Exercise Program Other Education review all HEP for maintainence purpose. ankle eversion, LAQ, calf stretch and HS stretch PT-OP-T Assessment and Plan Start: 06/06/20 13:57 Freq: Status: Active Protocol: Document 06/22/20 10:34 (Rec: 06/22/20 10:58 [id number]) Physical Therapy Assessment Goals weak R hip Impairment weak R hip Short Term Goal (STG) Pt will improve 1/2 muscle grade of R hip stabilizers STG Duration 4 weeks Mcfp Goal (LTG) Pt will improve 1 full MMT grade of R hip stabilizer to optimize his gait efficiency and improve single leg balance LTG Duration 8 weeks driving Impairment pt has R leg pain after driving 25 miles Mcfp Goal (LTG) 06/22 goal met Pt drove 4 hours this weekend without discomfort pt will be pain and discomfort free for driving >25 miles to run his errands LTG Duration 8 weeks walking Impairment pt has RLE pain after his daily mile walk [employer] [place] Goal (LTG) 06/22 goal met Pt is pain and discomfort free for his daily one mile walk LTG Duration 8 weeks LEFS Impairment pt scores 39 on LEFs Short Term Goal (STG) Pt will score >50 and higher on LEFS STG Duration 4 weeks Mcfp Goal (LTG) pt will score >60 and higher on LEFS to improve his quality of life LTG Duration 8 weeks Progress Towards Goals Progress Towards Goals Goals Met Assessment Summary Assessment Pt met all his goals and currently discomfort free for all his driving and walking activities. Reviewed all HEP today and pt shows good understanding. Pt requested to be d/c from therapy. Physical Therapy Plan Discharge Physical Therapy Discharge Reasons Goals Met
== END 2020-06-23 10:52 | disposition home or self-care (01) ==
LOC: PHYS 10:30
PROVIDERS: PCP Family Medicine; Referring Provider Orthopaedic Surgery; Visit Provider Orthopaedic Surgery
DX: M70.61 Trochanteric bursitis, right hip (principal); M70.62 Trochanteric bursitis, left hip; M76.31 Iliotibial band syndrome, right leg
CPT/HCPCS: 97110; 97140; 97162; 97535

== ENCOUNTER 2024-03-11 09:37 | Observation (INO) | payer MEDICARE, OTHER, SELFPAY ==
[2024-03-11] VITALS (23 sets, daily range): BP systolic 96–161; BP diastolic 46–68; PULSE 50–63; RESP 14–25; TEMP 36.1–37; O2SAT 94–99; BMI 23.3
--- NOTE | 2024-03-11 09:52 | ED_ITS ---
HPI - Dizziness General Chief Complaint: Syncope Stated Complaint: Syncopal episode Time Seen by Provider: 03/11/24 09:44 Source: patient and EMS Mode of arrival: EMS History of Present Illness HPI Narrative: Patient brought in by ambulance from home for episode of near-syncope/dizziness. Blood sugar 88. Patient states he remained awake the entire event. He states he remember taking a cold medication and half prior to arrival but he had this yesterday without any difficulty. Went to the kitchen and felt very dizzy. He brought himself to the floor. at his side. 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 No seizure activity. No numbness tingling weakness slurred speech or facial droop. No headache. states his heart rate was in the 40s. Blood pressure at home systolic 88. No significant change with EMS on their arrival. Patient offers no complaints at this time. Is not on a beta-clari. Denies any medical problems. No recent illness. He took the cold medication because his right ear felt plugged. No black or bloody stools. No chest pain no shortness of breath. No palpitations. states his heart rate is usually in the 70 Related Data Home Medications Medication Instructions Recorded Confirmed famotidine 20 mg tablet (Pepcid) 20 mg PO DAILY 05/03/18 05/03/18 lorazepam 2 mg tablet 1 mg PO BEDTIME PRN 05/03/18 05/03/18 Previous Rx's Medication Instructions Recorded polymyxin B sulfate 10,000 2 drop ophthalmic (eye) QID #10 mL 05/03/18 unit-trimethoprim 1 mg/mL eye drops (Polytrim) Allergies Allergy/AdvReac Type Severity Reaction Status Date / Time acetaminophen Allergy Severe passed out Verified 05/03/18 08:23 [From Darvocet-N] hydromorphone [From Dilaudid] Allergy Severe Anaphylaxis Verified 05/03/18 08:23 propoxyphene Allergy Severe passed out Verified 05/03/18 08:23 [From Darvocet-N] Review of Systems Review of Systems Narrative: GENERAL: negative chills, fatigue, malaise, fever, sweats. HEENT: negative sinus pain, ear pain, sore throat RESPIRATORY: negative dyspnea, cough CARDIOVASCULAR: negative chest pain, palpitations GASTROINTESTINAL: negative nausea, vomiting, abdominal pain : negative dysuria, frequency, hematuria MUSCULOSKELETAL: negative muscle or bony pain SKIN: negative rash, skin lesions NEUROLOGIC: negative weakness, numbness, positive dizziness ROS Unobtainable: All systems reviewed & are unremarkable except as noted in HPI and below Patient History Social History household members: spouse Smoking Status: Never smoker Smoking Status: Never smoker alcohol intake frequency: holidays/special occasions only Substance Use Type: does not use Exam Narrative Exam Narrative: GENERAL: in no distress, not toxic not dyspneic HEAD: Normocephalic. EYES: Pupils equal round ENT: Mucous membranes moist. NECK: Trachea midline. CARDIOVASCULAR: Regular rate and rhythm, bradycardic RESPIRATORY: Clear to auscultation. Breath sounds equal bilaterally. No wheezes, rales, or rhonchi. GASTROINTESTINAL: Abdomen soft, non-tender EXTREMITIES: No gross deformities. BACK: No flank tenderness. NEURO: AOx4. SKIN: Warm and dry PSYCH: Not anxious, is cooperative Initial Vital Signs Initial Vital Signs: Vital Signs Temperature 98.6 F 03/11/24 09:41 Pulse Rate 51 L 03/11/24 09:41 Respiratory Rate 19 03/11/24 09:41 Blood Pressure 147/65 H 03/11/24 09:41 Pulse Oximetry 99 03/11/24 09:41 Oxygen Delivery Method Room Air 03/11/24 09:41 Course Orders Ordered: ED Orders 03/11/24 09:41 Complete Blood Count AUTO DIFF Stat Comprehensive Metabolic Panel Stat Prothrombin Time INR Stat Troponin I Stat 03/11/24 09:50 CT angio head and neck Stat EKG-12 Lead Stat 03/11/24 09:51 CT head/brain wo con Stat XR chest 1V Stat 03/11/24 13:05 EC echo doppler complete Stat Atropine Sulfate (Atropine 1 Mg/10 Ml Syringe) 0.5 mg IV PRN PRN PRN Reason: HR <40 with symptoms Enoxaparin Sodium (Enoxaparin 40 Mg/0.4 Ml Syringe) 40 mg SUBCUT DAILY LISSETTE Lorazepam (Lorazepam 1 Mg Tablet) 1 mg PO BEDTIME PRN PRN Reason: anxiety Melatonin (Melatonin 3 Mg Tablet) 6 mg PO BEDTIME PRN PRN Reason: Insomnia Naloxone HCl (Naloxone 0.4 Mg/Ml Vial) 0.2 mg IV Q2MIN PRN PRN Reason: Opiate Reversal Ondansetron HCl (Ondansetron 4 Mg/2 Ml Inj) 4 mg IV Q4HR PRN PRN Reason: Nausea And Vomiting Polyethylene Glycol (Polyethylene Glycol 3350 17 Gm Powd.Pack) 17 gm PO DAILY PRN PRN Reason: Constipation Sennosides (Sennosides 8.6 Mg Tablet) 8.6 mg PO BID PRN PRN Reason: Constipation Discontinued Medications Sodium Chloride (Normal Saline 0.9%) 500 mls @ 1,000 mls/hr IV BOLUS ONE Stop: 03/11/24 10:20 Last Infusion: 03/11/24 10:30 Dose: Infused Documented By: Admin: 03/11/24 10:02 Dose: 1,000 mls/hr Documented By: SHWETHA Vital Signs Vital signs: Vital Signs - 8 hr 03/11/24 11:59 03/11/24 12:03 03/11/24 12:29 Temperature 98 F Pulse Rate 54 L 53 L Respiratory Rate 23 14 Blood Pressure 129/61 126/60 Pulse Oximetry 98 96 Oxygen Delivery Method Room Air 03/11/24 12:29 03/11/24 12:30 03/11/24 12:31 Temperature Pulse Rate 53 L 53 L Respiratory Rate 16 15 Blood Pressure 129/58 L Pulse Oximetry 96 96 Oxygen Delivery Method 03/11/24 12:31 03/11/24 13:00 03/11/24 13:00 Temperature Pulse Rate 54 L 53 L Respiratory Rate 21 15 Blood Pressure 119/55 L Pulse Oximetry 96 97 Oxygen Delivery Method 03/11/24 13:19 03/11/24 13:20 03/11/24 13:20 Temperature Pulse Rate 59 L 57 L Respiratory Rate 23 15 Blood Pressure 161/67 H Pulse Oximetry 96 Oxygen Delivery Method 03/11/24 13:30 03/11/24 13:31 03/11/24 13:31 Temperature Pulse Rate 56 L 54 L Respiratory Rate 16 17 Blood Pressure 114/55 L Pulse Oximetry 97 96 Oxygen Delivery Method 03/11/24 14:00 03/11/24 14:00 03/11/24 14:30 Temperature Pulse Rate 52 L 51 L Respiratory Rate 16 14 Blood Pressure 102/52 L Pulse Oximetry 96 97 Oxygen Delivery Method 03/11/24 14:31 03/11/24 14:31 03/11/24 15:00 Temperature Pulse Rate 51 L Respiratory Rate 17 Blood Pressure 110/52 L 96/55 L Pulse Oximetry 97 Oxygen Delivery Method 03/11/24 15:00 03/11/24 15:30 03/11/24 16:00 Temperature Pulse Rate 55 L 56 L Respiratory Rate Blood Pressure 129/61 Pulse Oximetry 97 Oxygen Delivery Method 03/11/24 16:00 Temperature Pulse Rate 50 L Respiratory Rate 20 Blood Pressure Pulse Oximetry 98 Oxygen Delivery Method MDM - Dizziness Lab Data 03/11/24 09:41 03/11/24 09:41 Labs: Lab Results 03/11/24 03/11/24 Range/Units 09:04 09:41 WBC 4.9 (4.5-11.0) X10^3/uL RBC 4.42 L (4.5-5.9) X10^6/uL Hgb 12.8 L (13.5-17.5) g/dL Hct 38.3 L (41-53) % MCV 86.8 (80-100) fL MCH 29.1 (26-34) PG MCHC 33.5 (30-36) % RDW 14.5 (11.6-14.8) % Plt Count 238 (150-400) X10^3/uL Neut % (Auto) 60.7 (50-75) % Lymph % (Auto) 28.8 (25-40) % Cobb % (Auto) 7.8 (3-14) % Eos % (Auto) 1.4 L (2-4) % Baso % (Auto) 1.3 (0-2) % Neut # (Auto) 3000 (5127-9058) /uL Lymph # (Auto) 1400 (1533-5307) /uL Cobb # (Auto) 400 (0-900) /uL Eos # (Auto) 100 (0-450) /uL Baso # (Auto) 100 (0-100) /uL PT 13.2 H (9.4-12.5) SECONDS INR 1.2 (0.9-1.3) Sodium 137 (137-145) mmol/L Potassium 4.3 (3.4-5.1) mmol/L Chloride 106 (98-107) mmol/L Carbon Dioxide 31 (22-32) mmol/L BUN 18 (9-20) mg/dL Creatinine 0.78 (0.66-1.25) mg/dL Estimated GFR > 60 (>60) mL/min BUN/Creatinine Ratio 23.1 H (6-22) Glucose 76 L (80-110) mg/dL Calcium 8.7 (8.4-10.2) mg/dL Magnesium 2.3 (1.6-2.3) mg/dL Total Bilirubin 0.9 (0.2-1.3) mg/dL AST 34 (17-59) IU/L ALT 30 (<50) IU/L Alkaline Phosphatase 78 (38-126) U/L Troponin I < 0.012 (0.01-0.034) ng/mL Total Protein 6.3 (6.3-8.2) g/dL Albumin 3.7 (3.5-5.0) g/dL Globulin 2.6 (1.7-4.1) g/dL Albumin/Globulin Ratio 1.4 (1.0-2.8) TSH 1.99 (0.47-4.68) uIU/mL Point of Care Testing Glucose POC 81 Imaging Data Chest x-ray: Radiologist's Impression: [address] [address] XRay Report Signed Patient: Say [place] MR#: [id number] : 1935 Acct:[id number] Age/Sex: 88 / M Date of Service: 03/11/24 Loc: Accession Number: [id number] Procedure: XR chest 1V Ordering Provider: Christine Heck MD PROCEDURE: XR CHEST 1V INDICATIONS: Dizziness TECHNIQUE: One view of the chest was acquired. COMPARISON: None. FINDINGS: Surgical changes and devices: None. Lungs and pleura: Lungs are clear. No pleural effusions or pneumothorax. Mediastinum: Mediastinal contours appear normal. Heart size is normal. Bones and chest wall: No suspicious bony lesions. Overlying soft tissues appear unremarkable. IMPRESSION: No acute cardiopulmonary abnormality is seen. Dictated by: Aleta Martinez M.D. on 03/11/2024 at 10:34 Approved by: Aleta Martinez M.D. on 03/11/2024 at 10:34 CT scan - head: Radiologist's Impression: [address] [address] [address] Scan Report Signed Patient: Say [place] MR#: [id number] : 1935 Acct:[id number] Age/Sex: 88 / M Date of Service: 03/11/24 Loc: ED Accession Number: [id number] Procedure: CT head/brain wo con Ordering Provider: Christine Heck MD PROCEDURE: CT HEAD/BRAIN WO CON INDICATIONS: Dizziness TECHNIQUE: Noncontrast 4.5 mm thick angled axial sections acquired from the foramen magnum to the vertex, with coronal and sagittal reformats. For radiation dose reduction, the following was used: automated exposure control, adjustment of mA and/or kV according to patient size. COMPARISON: None. FINDINGS: Image quality: Diagnostic. CSF spaces: Basal cisterns are patent. No extra-axial fluid collections. The ventricles are symmetric in size and shape. Brain: No intracranial bleeds or masses. There is cerebral volume loss for age, with resultant ventricular and sulcal prominence. There are marked periventricular and deep white matter chronic small vessel ischemic changes. There is intracranial internal carotid artery atherosclerosis. Skull and face: Calvarium and visualized facial bones appear intact, without suspicious lesions. Sinuses: Visualized sinuses and mastoids are clear. IMPRESSION: 1. No acute intracranial pathology. 2. Extensive findings likely associated with chronic microvascular ischemic changes. Dictated by: Aleta Martinez M.D. on 03/11/2024 at 11:20 Approved by: Aleta Martinez M.D. on 03/11/2024 at 11:22 CTA - brain/neck: Radiologist's Impression: [place] [address] CT Scan Report Signed Patient: Say [place] MR#: [id number] : 1935 Acct:[id number] Age/Sex: 88 / M Date of Service: 03/11/24 Loc: ED Accession Number: [id number] Procedure: CT angio head and neck Ordering Provider: Christine Heck MD PROCEDURE: CT ANGIO HEAD AND NECK INDICATIONS: Dizziness TECHNIQUE: After the administration of intravenous contrast, 1 mm thick sections acquired from the aortic arch through the [place]. 3-dimensional sxvhage-wnduhgvew-dpeszlsxpk (MIP) and/or volume rendering reformats were acquired of the central intracranial vasculature and neck separately. For radiation dose reduction, the following was used: automated exposure control, adjustment of mA and/or kV according to patient size. COMPARISON: [facility], CT, CT ANGIO CHEST PE, 10/22/2015, 1:38. FINDINGS: Image quality: Diagnostic. BRAIN: CSF spaces: Ventricles are normal in size and shape. Basal cisterns are patent. No extra-axial fluid collections. Brain: No significant abnormality of the brain can be seen. Skull and face: Calvarium and facial bones appear intact, without suspicious lesions. Orbits appear normal. Sinuses: Sinuses and mastoids are clear. HEAD CT ANGIOGRAPHY: Anterior circulation: Atheromatous calcifications are present bilaterally within the cavernous portions of the internal carotid arteries with less than 50% stenosis. The flow within the paired anterior cerebral arteries is normal and symmetric. The flow within the middle cerebral arteries is normal and symmetric. The anterior communicating artery is seen. No aneurysms are seen. Posterior circulation: Visualized portions of the vertebral arteries demonstrate normal caliber, and join to form a normal appearing basilar artery. Flow within the posterior cerebral arteries is normal and symmetric. No aneurysms are seen. 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 The common carotid arteries are widely patent. Atheromatous calcifications and plaque are present within the right carotid bulb with approximately 50% luminal stenosis. Mild atheromatous calcifications are present at the left carotid bulb without hemodynamically significant stenosis. The more superior portions of the bilateral cervical internal carotid arteries are widely patent. Posterior circulation: The origins of the vertebral arteries both appear widely patent. The more superior extracranial portions of both vertebral arteries also demonstrate normal courses and calibers. They join to form a normal appearing basilar artery. Soft tissues: Visualized neck soft tissues demonstrate no suspicious abnormalities. Bones: No suspicious bony lesions. Visualized cervical spine appears normally aligned. IMPRESSION: 1. 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 2. Approximately 50% luminal narrowing at the origin of the right internal carotid artery. 3. No other stenosis, occlusion, or aneurysm of the cervical or intracranial vasculature. Dictated by: Aleta Martinez M.D. on 03/11/2024 at 11:28 Approved by: Aleta Martinez M.D. on 03/11/2024 at 11:39 Echocardiogram: Radiologist's Impression: [address] [address] Echocardiography Report Signed Patient: Say [place] MR#: [id number] : 1935 Acct:[id number] Age/Sex: 88 / M Date of Service: 03/11/24 Loc: ED Accession Number: [id number] Procedure: EC echo doppler complete Ordering Provider: Christine Heck MD [facility] +---------+ [facility] +---------+ : : [address] [place] [address]. : : : : [place], [place] : : : : [id number] : : : : Phone: [phone] Echocardiogram Report + + :Name: SAY [place] Study Date: 03/11/2024 Height: 69 in : :[facility] ReadingLocation: Weight: 158 lb: : Gender: Male BSA: 1.9 m2 : :: 1935 Age: 88 yrs BP: 96/55 mmHg: :Reason For Study: ARRHYTHMIA : :Ordering Physician: ROBERT, : :CHRISTINE Performed By: Sharmin Marie : :Referring: CHRISTINE HECK : + + Interpretation Summary The left ventricle is normal in size and wall thickness. Left ventricular systolic function appears normal without focal wall motion abnormalities. The ejection fraction is estimated to be 55-60%. Diastolic parameters suggest probable normal left ventricular diastolic function and normal filling pressures. The right ventricle is normal in size and function. The right ventricular systolic pressure is estimated to be at least 40 mmHg based on an estimated right atrial pressure of 8 mm Hg. The left atrium is moderately dilated. There is mild mitral regurgitation. There is mild aortic regurgitation. The aortic root is normal size. Procedure: A two-dimensional transthoracic echocardiogram with color flow and Doppler was performed. The study quality was technically adequate. Comparison is made with the echocardiogram of 10/22/2015. The patient had occasional PVCs during the exam. The patient was in sinus bradycardia with heart rates between 49-54 bpm during the exam. Left Ventricle: The left ventricle is normal in size and wall thickness. Left ventricular systolic function appears normal without focal wall motion abnormalities. The ejection fraction is estimated to be 55-60%. Diastolic parameters suggest probable normal left ventricular diastolic function and normal filling pressures. Right Ventricle: The right ventricle is normal in size and function. Atria: The left atrium is moderately dilated. The right atrium is mildly dilated. There is no Doppler evidence for an interatrial shunt. Mitral Valve: The mitral valve is normal in structure and function. There is mild mitral regurgitation. Aortic Valve: The aortic valve is trileaflet. The aortic valve is mildly calcified. There is no aortic valve stenosis. There is mild aortic regurgitation. Tricuspid Valve: The tricuspid valve is normal in structure and function. There is mild tricuspid regurgitation. The right ventricular systolic pressure is estimated to be at least 40 mmHg based on an estimated right atrial pressure of 8 mm Hg. Pulmonic Valve: The pulmonic valve leaflets are thin and pliable; valve motion is normal. There is mild pulmonic regurgitation. Great Vessels: The aortic root is normal size. The dimensions of the ascending aorta are normal. The IVC is dilated (diameter is greater than 2.1 cm) yet it collapses greater than 50% with a sniff. This suggests a right atrial pressure of 8 mm Hg. Pericardium/ Pleura There is no pericardial effusion. There is no pleural effusion. MMode/2D Measurements & Calculations LVIDd: 4.8 cm LVOT diam: 2.2 cm LVIDs: 3.1 cm Ao root diam: 3.6 cm FS: 35.9 % asc Aorta Diam: 3.3 cm EPSS: 0.77 cm IVSd: 0.92 cm LVPWd: 0.91 cm LV garcia. diameter/BSA (cm/m^2): 2.6 LV sys. diameter/BSA (cm/m^2): 1.7 LA A2 area: 23.7 cm2 RA long axis: 5.7 cm LA A4 area: 24.3 cm2 RA area: 21.8 cm2 LA length (vol): 5.8 cm RA vol: 70.2 ml LA vol: 83.6 ml RA : 37.6 ml/m2 LA vol index: 44.7 ml/m2 IVC diam: 2.3 cm RVD1 (basal): 3.8 cm RVD2 (mid): 3.4 cm TAPSE: 2.8 cm Doppler Measurements & Calculations Ao V2 max: 136.3 cm/sec LVOT Max Tato: 110.1 cm/sec Ao V2 mean: 85.6 cm/sec LV V1 max P.9 mmHg Ao max P.4 mmHg LV V1 VTI: 24.5 cm Ao mean P.5 mmHg KIRTI(I,D): 3.4 cm2 Ao V2 VTI: 28.3 cm KIRTI(V,D): 3.1 cm2 sev ratio: 0.86 KIRTI indexed to BSA (cm^2/m^2): 1.8 MV E max tato: 64.6 cm/sec TR max tato: 284.5 cm/sec MV A max tato: 61.7 cm/sec TR max P.4 mmHg MV E/A: 1.0 PA V2 max: 145.0 cm/sec Med Peak E' Tato: 6.7 cm/sec PA V2 mean: 96.5 cm/sec E/E' med: 9.7 PA mean P.2 mmHg Lat Peak E' Tato: 7.7 cm/sec PA pr(Accel): 36.2 mmHg E/E' lat: 8.4 E/e' average: 9.1 MV dec time: 0.27 sec SV(LVOT): 95.5 ml Reading Physician:04:06 PM MDM Narrative Medical decision making narrative: Patient brought in by ambulance from home for episode of near-syncope/dizziness. Blood sugar 88. Patient states he remained awake the entire event. He states he remember taking a cold medication and half prior to arrival but he had this yesterday without any difficulty. Went to the kitchen and felt very dizzy. He brought himself to the floor. at his side. 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 No seizure activity. No numbness tingling weakness slurred speech or facial droop. No headache. states his heart rate was in the 40s. Blood pressure at home systolic 88. No significant change with EMS on their arrival. Patient offers no complaints at this time. Is not on a beta-clari. Denies any medical problems. No recent illness. He took the cold medication because his right ear felt plugged. No black or bloody stools. No chest pain no shortness of breath. No palpitations. 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 Pertinent findings: WBC 4.9 hemoglobin 12.8 sodium 137 potassium 4.3 troponin less than 0.012 Independently reviewed EKG sinus bradycardia rate 51 right bundle-branch block no ST elevation or depression Imaging studies independently reviewed: CT head CT angiogram head and neck chest x-ray no acute findings Consultations: 12:15 p.m..s/w dr tirado, cardiology, recommends be speaking with Dr. Leong, EP Cardiology for disposition 1:[address] Leong, EP Cardiology, recommends echocardiogram here. Observation over night for any changes. May discharge home tomorrow if no changes and follow up with him in the office. He has reviewed EMS rhythm strips with me as well as EKG here. 4:15 p.m.. Echocardiogram has been completed. I spoke with Dr. Rodriguez, he will see patient for admission Treatments: Normal saline Re-evaluations: 1:15 p.m.. Updated patient and family results. They do agree and understand need for admission and observation Discussion: Appropriate for admission for symptomatic bradycardia. I have reviewed with denture finisher and recommends observation and echocardiogram. No atropine indicated. Patient heart rate has maintained above 50 during course of stay. No pacer pads indicated at this time. Blood pressure has been stable Diagnosis: Symptomatic bradycardia Discharge Plan Departure Patient Disposition: Admitted as Observation Clinical Impression: Symptomatic bradycardia Admit Date/Time: 03/11/24 16:14 Admit Provider: Elan Rodriguez
[2024-03-11 10:02] LABS: Add Manual Diff / Slide Review NO; Basophils Absolute Auto 100 /uL (0-100); Basophils Percent Auto 1.3 % (0-2); Eosinophils Absolute Auto 100 /uL (0-450); Eosinophils Percent Auto 1.4 % (2-4); Hematocrit 38.3 % (41-53); Hemoglobin 12.8 g/dL (13.5-17.5); Lymphocytes Absolute Auto 1400 /uL (1100-4500); Lymphocytes Percent Auto 28.8 % (25-40); Mean Corpuscular HGB Conc 33.5 % (30-36); Mean Corpuscular Hemoglobin 29.1 PG (26-34); Mean Corpuscular Volume 86.8 fL (80-100); Monocytes Absolute Auto 400 /uL (0-900); Monocytes Percent Auto 7.8 % (3-14); Neutrophils Absolute Auto 3000 /uL (1500-7000); Neutrophils Percent Auto 60.7 % (50-75); Platelet Count 238 X10^3/uL (150-400); Red Blood Cell Count 4.42 X10^6/uL (4.5-5.9); Red Cell Distribution Width 14.5 % (11.6-14.8); White Blood Cell Count 4.9 X10^3/uL (4.5-11.0)
[2024-03-11] MEDS: SODIUM CHLORIDE 0.9% 500 ML 1000 ML IV (10:02)
[2024-03-11 10:04] LABS: INR 1.2 (0.9-1.3); Prothrombin Time 13.2 SECONDS (9.4-12.5)
[2024-03-11 10:16] LABS: Alanine Aminotransferase 30 IU/L (<50); Albumin 3.7 g/dL (3.5-5.0); Albumin Globulin Ratio 1.4 (1.0-2.8); Alkaline Phosphatase 78 U/L (38-126); Aspartate Aminotransferase 34 IU/L (17-59); BUN Creatinine Ratio 23.1 (6-22); Bilirubin Total 0.9 mg/dL (0.2-1.3); Blood Urea Nitrogen 18 mg/dL (9-20); Calcium 8.7 mg/dL (8.4-10.2); Carbon Dioxide 31 mmol/L (22-32); Chloride 106 mmol/L (98-107); Estimated Glomerular Filt Rate > 60 mL/min (>60); Globulin 2.6 g/dL (1.7-4.1); Glucose 76 mg/dL (80-110); HEMOLYSIS < 15 (0-50); Potassium 4.3 mmol/L (3.4-5.1); Sodium 137 mmol/L (137-145); Total Protein 6.3 g/dL (6.3-8.2)
[2024-03-11 10:25] LABS: Troponin I < 0.012 ng/mL (0.01-0.034)
--- NOTE | 2024-03-11 12:34 | PC.NURSE ---
Pt sitting up in bed. states that he no longer feels like he is dizzy or lightheaded. pt a&ox4.
--- NOTE | 2024-03-11 13:05 | DI.ECHO.S_ITS ---
[facility] +---------+ : : [address] : : : : [id number] : : : : Phone: [phone]+ Echocardiogram Report + + :Name: CANDICE DENNIS Study Date: 03/11/2024 Height: 69 in : :[facility] ReadingLocation: Weight: 158 lb: : Gender: Male BSA: 1.9 m2 : :: 1935 Age: 88 yrs BP: 96/55 mmHg: :Reason For Study: ARRHYTHMIA : :Ordering Physician: ROBERT, : :CHRISTINE Performed By: Sharmin Marie : :Referring: CHRISTINE HECK : + + Interpretation Summary The left ventricle is normal in size and wall thickness. Left ventricular systolic function appears normal without focal wall motion abnormalities. The ejection fraction is estimated to be 55-60%. Diastolic parameters suggest probable normal left ventricular diastolic function and normal filling pressures. The right ventricle is normal in size and function. The right ventricular systolic pressure is estimated to be at least 40 mmHg based on an estimated right atrial pressure of 8 mm Hg. The left atrium is moderately dilated. There is mild mitral regurgitation. There is mild aortic regurgitation. The aortic root is normal size. Procedure: A two-dimensional transthoracic echocardiogram with color flow and Doppler was performed. The study quality was technically adequate. Comparison is made with the echocardiogram of 10/22/2015. The patient had occasional PVCs during the exam. The patient was in sinus bradycardia with heart rates between 49-54 bpm during the exam. Left Ventricle: The left ventricle is normal in size and wall thickness. Left ventricular systolic function appears normal without focal wall motion abnormalities. The ejection fraction is estimated to be 55-60%. Diastolic parameters suggest probable normal left ventricular diastolic function and normal filling pressures. Right Ventricle: The right ventricle is normal in size and function. Atria: The left atrium is moderately dilated. The right atrium is mildly dilated. There is no Doppler evidence for an interatrial shunt. Mitral Valve: The mitral valve is normal in structure and function. There is mild mitral regurgitation. Aortic Valve: The aortic valve is trileaflet. The aortic valve is mildly calcified. There is no aortic valve stenosis. There is mild aortic regurgitation. Tricuspid Valve: The tricuspid valve is normal in structure and function. There is mild tricuspid regurgitation. The right ventricular systolic pressure is estimated to be at least 40 mmHg based on an estimated right atrial pressure of 8 mm Hg. Pulmonic Valve: The pulmonic valve leaflets are thin and pliable; valve motion is normal. There is mild pulmonic regurgitation. Great Vessels: The aortic root is normal size. The dimensions of the ascending aorta are normal. The IVC is dilated (diameter is greater than 2.1 cm) yet it collapses greater than 50% with a sniff. This suggests a right atrial pressure of 8 mm Hg. Pericardium/ Pleura There is no pericardial effusion. There is no pleural effusion. MMode/2D Measurements & Calculations LVIDd: 4.8 cm LVOT diam: 2.2 cm LVIDs: 3.1 cm Ao root diam: 3.6 cm FS: 35.9 % asc Aorta Diam: 3.3 cm EPSS: 0.77 cm IVSd: 0.92 cm LVPWd: 0.91 cm LV garcia. diameter/BSA (cm/m^2): 2.6 LV sys. diameter/BSA (cm/m^2): 1.7 LA A2 area: 23.7 cm2 RA long axis: 5.7 cm LA A4 area: 24.3 cm2 RA area: 21.8 cm2 LA length (vol): 5.8 cm RA vol: 70.2 ml LA vol: 83.6 ml RA : 37.6 ml/m2 LA vol index: 44.7 ml/m2 IVC diam: 2.3 cm RVD1 (basal): 3.8 cm RVD2 (mid): 3.4 cm TAPSE: 2.8 cm Doppler Measurements & Calculations Ao V2 max: 136.3 cm/sec LVOT Max Tato: 110.1 cm/sec Ao V2 mean: 85.6 cm/sec LV V1 max P.9 mmHg Ao max P.4 mmHg LV V1 VTI: 24.5 cm Ao mean P.5 mmHg KIRTI(I,D): 3.4 cm2 Ao V2 VTI: 28.3 cm KIRTI(V,D): 3.1 cm2 sev ratio: 0.86 KIRTI indexed to BSA (cm^2/m^2): 1.8 MV E max tato: 64.6 cm/sec TR max tato: 284.5 cm/sec MV A max tato: 61.7 cm/sec TR max P.4 mmHg MV E/A: 1.0 PA V2 max: 145.0 cm/sec Med Peak E' Tato: 6.7 cm/sec PA V2 mean: 96.5 cm/sec E/E' med: 9.7 PA mean P.2 mmHg Lat Peak E' Tato: 7.7 cm/sec PA pr(Accel): 36.2 mmHg E/E' lat: 8.4 E/e' average: 9.1 MV dec time: 0.27 sec SV(LVOT): 95.5 ml Reading Physician:04:06 PM
--- NOTE | 2024-03-11 14:28 | PC.NURSE ---
pt sitting up in bed. has been cleared to eat and drink by ed physician. pt states that he is not feeling dizzy or lightheaded at this time. a&ox4
[2024-03-11 17:12] LABS: Magnesium 2.3 mg/dL (1.6-2.3)
--- NOTE | 2024-03-11 17:23 | P.HP_ITS ---
History of Present Illness <Darek Lizama, DO - Last Filed: 03/11/24 17:40> History of Present Illness Chief complaint: Syncopal episode Narrative: Say Swift is a 88 YO M with a PMH of anxiety, dyslipidemia, and PE. He is presenting today with symptomatic bradycardia. He started feeling faint this morning after he took a Coricidin pill with breakfast. His HR was 38 and his systolic BP was 88 at that time. He did not lose consciousness or hit his head during the incident. He has been battling an URI for the past 2 weeks but reports no lingering symptoms other than some ear congestion that was bothering him this morning. <Elan Rodriguez, DO - Last Filed: 03/11/24 18:07> History of Present Illness Narrative: Say Swift is a 88 YO M with a PMH of anxiety, dyslipidemia, and PE. He is presenting today with symptomatic bradycardia. He started feeling faint this morning after he took a Coricidin pill with breakfast. His HR was 38 and his systolic BP was 88 at that time. He did not lose consciousness or hit his head during the incident. He has been battling an URI for the past 2 weeks but reports no lingering symptoms other than some ear congestion that was bothering him this morning. Denies NV, headache, CP, SOB, abd pain or diarrhea. PFSH <Darek Lizama, DO - Last Filed: 03/11/24 17:40> Social History Smoking Status: Never smoker Meds <Darek Lizama, DO - Last Filed: 03/11/24 17:40> Home Medications and Allergies Home Medications Medication Instructions Recorded Confirmed Type famotidine 20 mg tablet (Pepcid) 20 mg PO DAILY 05/03/18 05/03/18 History lorazepam 2 mg tablet 1 mg PO BEDTIME PRN 05/03/18 05/03/18 History polymyxin B sulfate 10,000 2 drop ophthalmic (eye) QID #10 mL 05/03/18 Rx unit-trimethoprim 1 mg/mL eye drops (Polytrim) Allergies Allergy/AdvReac Type Severity Reaction Status Date / Time acetaminophen Allergy Severe passed out Verified 05/03/18 08:23 [From Darvocet-N] hydromorphone [From Dilaudid] Allergy Severe Anaphylaxis Verified 05/03/18 08:23 propoxyphene Allergy Severe passed out Verified 05/03/18 08:23 [From Babak] Review of Systems <Darek Lizama DO - Last Filed: 03/11/24 17:40> Review of Systems Narrative: Gen: - weight loss, fatigue, fever or chills HEENT: - headache, + hearing changes Resp: - cough, and dyspnea CV: - CP, or palpitations GI: + constipation, - vomiting, nausea Neuro: +dizziness, - numbness and tingling Psych: + anxiety Exam <Darek Lizama DO - Last Filed: 03/11/24 17:40> Vital Signs (past 8 hours): - 03/11/24 09:41 03/11/24 11:59 03/11/24 12:03 Temperature 98.6 F 98 F Pulse Rate 51 L 54 L 53 L Respiratory Rate 19 23 14 Blood Pressure 147/65 H 129/61 Pulse Oximetry 99 98 96 Oxygen Delivery Method Room Air Room Air 03/11/24 12:29 03/11/24 12:29 03/11/24 12:30 Temperature Pulse Rate 53 L 53 L Respiratory Rate 16 15 Blood Pressure 126/60 Pulse Oximetry 96 96 Oxygen Delivery Method 03/11/24 12:31 03/11/24 12:31 03/11/24 13:00 Temperature Pulse Rate 54 L Respiratory Rate 21 Blood Pressure 129/58 L 119/55 L Pulse Oximetry 96 Oxygen Delivery Method 03/11/24 13:00 03/11/24 13:19 03/11/24 13:20 Temperature Pulse Rate 53 L 59 L Respiratory Rate 15 23 Blood Pressure 161/67 H Pulse Oximetry 97 Oxygen Delivery Method 03/11/24 13:20 03/11/24 13:30 03/11/24 13:31 Temperature Pulse Rate 57 L 56 L Respiratory Rate 15 16 Blood Pressure 114/55 L Pulse Oximetry 96 97 Oxygen Delivery Method 03/11/24 13:31 03/11/24 14:00 03/11/24 14:00 Temperature Pulse Rate 54 L 52 L Respiratory Rate 17 16 Blood Pressure 102/52 L Pulse Oximetry 96 96 Oxygen Delivery Method 03/11/24 14:30 03/11/24 14:31 03/11/24 14:31 Temperature Pulse Rate 51 L 51 L Respiratory Rate 14 17 Blood Pressure 110/52 L Pulse Oximetry 97 97 Oxygen Delivery Method 03/11/24 15:00 03/11/24 15:00 03/11/24 15:30 Temperature Pulse Rate 55 L 56 L Respiratory Rate Blood Pressure 96/55 L Pulse Oximetry 97 Oxygen Delivery Method 03/11/24 16:00 03/11/24 16:00 03/11/24 16:30 Temperature Pulse Rate 50 L 55 L Respiratory Rate 20 25 H Blood Pressure 129/61 Pulse Oximetry 98 98 Oxygen Delivery Method 03/11/24 16:32 03/11/24 16:32 03/11/24 17:00 Temperature Pulse Rate 54 L 50 L Respiratory Rate 19 Blood Pressure 154/68 H Pulse Oximetry 97 98 Oxygen Delivery Method 03/11/24 17:01 03/11/24 17:01 Temperature Pulse Rate 51 L Respiratory Rate 20 Blood Pressure 136/63 Pulse Oximetry 97 Oxygen Delivery Method Oxygen Delivery Method Room Air Narrative Exam Narrative: Gen: NAD, well appearing, alert and interactive Resp: normal respiratory effort, no wheezing or rhonchi CV: bradycardic, normal s1/s2, no murmurs ABD: soft, non-distended, no tenderness to palpation in all 4 quadrants EXT: Normal tone, no peripheral edema Neuro: AAOx3, normal gait <Elan Rodriguez, DO - Last Filed: 03/11/24 18:07> Narrative Exam Narrative: Gen: NAD, well appearing, alert and interactive Resp: normal respiratory effort, no wheezing or rhonchi CV: bradycardic, normal s1/s2, no murmurs ABD: soft, non-distended, no tenderness to palpation in all 4 quadrants EXT: Normal tone, no peripheral edema Neuro: AOx3, normal gait Objective <Darek Lizama, DO - Last Filed: 03/11/24 17:40> Labs 03/11/24 09:41 03/11/24 09:41 Labs: Laboratory Results - last 24 hr 03/11/24 03/11/24 09:04 09:41 WBC 4.9 RBC 4.42 L Hgb 12.8 L Hct 38.3 L MCV 86.8 MCH 29.1 MCHC 33.5 RDW 14.5 Plt Count 238 Neut % (Auto) 60.7 Lymph % (Auto) 28.8 [place] % (Auto) 7.8 Eos % (Auto) 1.4 L Baso % (Auto) 1.3 Neut # (Auto) 3000 Lymph # (Auto) 1400 [place] # (Auto) 400 Eos # (Auto) 100 Baso # (Auto) 100 PT 13.2 H INR 1.2 Sodium 137 Potassium 4.3 Chloride 106 Carbon Dioxide 31 BUN 18 Creatinine 0.78 Estimated GFR > 60 BUN/Creatinine Ratio 23.1 H Glucose 76 L Calcium 8.7 Magnesium 2.3 Total Bilirubin 0.9 AST 34 ALT 30 Alkaline Phosphatase 78 Troponin I < 0.012 Total Protein 6.3 Albumin 3.7 Globulin 2.6 Albumin/Globulin Ratio 1.4 Assessment & Plan <Darek Hawkan, DO - Last Filed: 03/11/24 17:40> Assessment & Plan narrative: # Symptomatic Bradycardia - Unknown etiology - EKG shows sinus hamlet with no AV blocks - Consulted Dr. Lizbeth KENT and was advised to monitor overnight - Echo showed an EF of 55-60% - Head CTA showed aortic arch fusiform # Anxiety - PRN Ativan # Recent URI - continue supportive care # Dyslipidemia - Continue atorvastatin <Elan Ham Rodriguez, DO - Last Filed: 03/11/24 18:07> Assessment & Plan narrative: # Symptomatic Bradycardia - Unknown etiology, possibly related to recent URI, not on BB's - EKG shows sinus hamlet with no AV blocks - ED consulted Dr. Dang KENT and advised to monitor overnight on tele, then f/up with him in clinic if no events - Echo showed an EF of 55-60%, mod LA dilation - Head CTA showed aortic arch fusiform and 50% right ISA # Anxiety - PRN Ativan # Recent URI - continue supportive care # Dyslipidemia - Continue atorvastatin Code status is full code. Confirmed with patient on admission. DVT prophylaxis with Lovenox. Proxy is Abimbola. I have reviewed home meds and used all available resources to reconcile the home meds. Case discussed with ED physician/APC and patient will be admitted to the hospitalist service for further workup and management. This patient will be admitted as observation and will require less than 2 midnights of hospital time to treat symptomatic bradycardia.
[2024-03-11 17:43] LABS: TSH w/ Reflex to FT4 1.99 uIU/mL (0.47-4.68)
[2024-03-11] MEDS: ENOXAPARIN 40 MG/0.4 ML SYRINGE SUBCUT (18:39)
--- NOTE | 2024-03-11 19:37 | PC.NURSE ---
Admit: ICU nurse had some concerns about pt's tele, she spoke with Dr. Rodriguez. Pt has no c/p and no pain. He was instructed to call for assist when he gets up since he passed out at home. Bedalarm is on.
[2024-03-11] MEDS: SODIUM CHLORIDE 0.9% FLUSH 10 ML IV (21:35)
--- NOTE | 2024-03-12 00:11 | PC.NURSE ---
Patient is alert and oriented. Wears bilateral hearing aids as is [place]. Breath sounds CTA with RA sat of 94%; placed on continuous pulse oximetry per MD order. HRR but bradycardic with rate in 50's; did have occasional PVC's on last telemetry reading. Denied nausea. BT present and reports having had BM earlier today (03/11). Is voiding on toilet and denied any dysuria. Is able to move himself in bed but provided SBA when up to bathroom for safety purposes. Denied pain. Wearing bilateral calf SCD's at start of shift but requested they be removed at bedtime as would not be able to sleep with them on; reminded to ankle wave when awake and he verbalized understanding. Fall risk score is moderte and bed alarm is activated. Daughter, Shana, rooming in [facility].
[2024-03-12 00:20] VITALS: BP 114/57; PULSE 50; RESP 17; TEMP 36; O2SAT 93
[2024-03-12 05:58] VITALS: BP 140/71; PULSE 63; RESP 16; TEMP 35.8; O2SAT 95
[2024-03-12 06:02] LABS: Add Manual Diff / Slide Review NO; Basophils Absolute Auto 0 /uL (0-100); Basophils Percent Auto 1.3 % (0-2); Eosinophils Absolute Auto 100 /uL (0-450); Eosinophils Percent Auto 1.5 % (2-4); Hematocrit 35.4 % (41-53); Hemoglobin 12.1 g/dL (13.5-17.5); Lymphocytes Absolute Auto 600 /uL (1100-4500); Lymphocytes Percent Auto 17.2 % (25-40); Mean Corpuscular HGB Conc 34.2 % (30-36); Mean Corpuscular Hemoglobin 29.3 PG (26-34); Mean Corpuscular Volume 85.5 fL (80-100); Monocytes Absolute Auto 400 /uL (0-900); Monocytes Percent Auto 10.4 % (3-14); Neutrophils Absolute Auto 2600 /uL (1500-7000); Neutrophils Percent Auto 69.6 % (50-75); Platelet Count 194 X10^3/uL (150-400); Red Blood Cell Count 4.13 X10^6/uL (4.5-5.9); Red Cell Distribution Width 13.9 % (11.6-14.8); White Blood Cell Count 3.7 X10^3/uL (4.5-11.0)
[2024-03-12 06:10] LABS: BUN Creatinine Ratio 23.2 (6-22); Blood Urea Nitrogen 16 mg/dL (9-20); Calcium 8.5 mg/dL (8.4-10.2); Carbon Dioxide 29 mmol/L (22-32); Chloride 107 mmol/L (98-107); Estimated Glomerular Filt Rate > 60 mL/min (>60); Glucose 84 mg/dL (80-110); HEMOLYSIS < 15 (0-50); Potassium 4.2 mmol/L (3.4-5.1); Sodium 137 mmol/L (137-145)
[2024-03-12 09:00] VITALS: BP 102/49; PULSE 65; TEMP 36.6
[2024-03-12 09:29] VITALS: BP 123/70; PULSE 60
--- NOTE | 2024-03-12 11:06 | P.DS_ITS ---
History of Present Illness History of Present Illness Chief complaint: Syncopal episode Narrative: Say Swift is a 88 YO M with a PMH of anxiety, dyslipidemia, and PE. He is presenting today with symptomatic bradycardia. He started feeling faint this morning after he took a Coricidin pill with breakfast. His HR was 38 and his systolic BP was 88 at that time. He did not lose consciousness or hit his head during the incident. He has been battling an URI for the past 2 weeks but reports no lingering symptoms other than some ear congestion that was bothering him this morning. Denies NV, headache, CP, SOB, abd pain or diarrhea. Discharge Providers Provider Date of admission: 03/11/24 16:14 Discharge Date: 03/12/24 Primary care physician: Dale Alcantara MD Discharge provider: Elan Rodriguez DO Summary Hospital Course Discharge Diagnosis: # Symptomatic Bradycardia - Unknown etiology, possibly related to recent URI, not on BB's - EKG shows sinus hamlet with no AV blocks - ED consulted Dr. Dang KENT and advised to monitor overnight on tele - Echo showed an EF of 55-60%, mod LA dilation - Head CTA showed aortic arch fusiform and 50% right ISA - f/up with EP cardiology at [facility] scheduled in 1 week # Anxiety - PRN Ativan # Recent URI - continue supportive care # Dyslipidemia - Continue atorvastatin Hospital Course: Admitted for presyncopal episode and noted HR to be in 30's and BP in 80's systolic. ED called EP cardiology who recommended echo and obs overnight on tele. Echo was reassuring and tele had no events. Discharged to see EP cardiology in about a week. Exam Vital Signs (past 8 hours): - 03/12/24 05:58 03/12/24 09:00 03/12/24 09:29 Temperature 96.4 F L 97.9 F Pulse Rate 63 65 60 Respiratory Rate 16 Blood Pressure 140/71 102/49 L 123/70 Pulse Oximetry 95 Oxygen Flow Rate 0 Oxygen Delivery Method Room Air Oxygen Flow Rate 0 Narrative Exam Narrative: Gen: NAD, well appearing, alert and interactive Resp: normal respiratory effort, no wheezing or rhonchi CV: bradycardic, normal s1/s2, no murmurs ABD: soft, non-distended, no tenderness to palpation in all 4 quadrants EXT: Normal tone, no peripheral edema Neuro: AOx3, normal gait Objective Labs 03/12/24 05:35 03/12/24 05:35 Labs: Laboratory Results - last 24 hr 03/11/24 03/12/24 09:04 05:35 WBC 3.7 L RBC 4.13 L Hgb 12.1 L Hct 35.4 L MCV 85.5 MCH 29.3 MCHC 34.2 RDW 13.9 Plt Count 194 Neut % (Auto) 69.6 Lymph % (Auto) 17.2 L [place] % (Auto) 10.4 Eos % (Auto) 1.5 L Baso % (Auto) 1.3 Neut # (Auto) 2600 Lymph # (Auto) 600 L [place] # (Auto) 400 Eos # (Auto) 100 Baso # (Auto) 0 Sodium 137 Potassium 4.2 Chloride 107 Carbon Dioxide 29 BUN 16 Creatinine 0.69 Estimated GFR > 60 BUN/Creatinine Ratio 23.2 H Glucose 84 Calcium 8.5 Magnesium 2.3 TSH 1.99 PFSH Social History household members: spouse Smoking Status: Never smoker Discharge Plan Discharge Plan Patient Disposition: Home Provider Discharge Comment: You will have follow-up with Dr. Leong at [facility] cardiology clinic on March 20 at 1:15pm. Discharge orders & Medications Prescriptions: Continued famotidine [Pepcid] 20 mg tablet 20 mg PO DAILY lorazepam 2 mg tablet 1 mg PO BEDTIME PRN polymyxin B sulf-trimethoprim [Polytrim] 10,000 unit- 1 mg/mL drops 2 drop ophthalmic (eye) QID Qty: 10 0RF Follow up/Referrals: Saleem Leong MD [Physician] - 03/20/24 1:15 pm Dale Alcantara MD [Primary Care Provider] - 03/21/24 11:40 am (Appt:03/21 check in at 11:20 for a 11:[address] Peace @ [address] [place] [address] drive ) Visit Report/Discharge Packet Instructions: DI for Syncope in Adults (Fainting), How to Prevent Falls, DI for Bradycardia Stand Alone Forms: Patient Portal/API, Stroke Signs & Symptoms Discharge Data Primary Care Provider: Dale Alcantara Attending Provider: Elan Rodriguez Admit Date/Time: 03/11/24 16:14 Quality VTE Deep Vein Thrombosis/Pulmonary Embolism Present on Admission: No
[2024-03-12] MEDS: LORazepam 1 MG TABLET PO (11:20)
--- NOTE | 2024-03-12 13:49 | PC.NURSE ---
Discharge: Pt feels ready to d/c to home. Has had no c/p, dizziness. Heart rate 50's, once this am it was in the high 40's. MD is aware. He had no sxs at that time. No dizziness or anything else. Reviewed discharge packet. Questions answered. Spouse present at time of teaching.
--- NOTE | 2024-03-12 15:04 | CM.DANOTE ---
Initial DCP Assessment Note Pt is a 88 yo male, resident of [place], arrives after syncopal episode, admitted OBS for symptomatic bradycardia. Sx resolved quickly and patient was eager to return home. PCP: Dale Alcantara Payer: DONATO/Loretta Reviewed chart, pt discussed in multidisciplinary rounds this morning. No barriers identified at this time to patient's safe discharge home w/family to assist; close outpatient f/u recommended. CM team will plan to follow closely in case any DC needs or concerns arise. CHER Collins Discharge Planning/Care Management Advanced directive, confirm from FAMILY Start: 03/11/24 17:52 Freq: Q24H Status: Discharge Protocol: Document 03/11/24 17:52 CEW (Rec: 03/11/24 18:09 CEW [id number]) Advance Directive, confirm on record Time 18:09 Person contacted Pt Copy received No CM Discharge Assessment Start: 03/12/24 15:01 Freq: Status: Active Protocol: Document 03/12/24 15:01 EVER (Rec: 03/12/24 15:04 EVER [id number]) Discharge Planning Assessment Assigned Access Clerk CHER Quinones DPOA/Assigned Designee Name Abimbola Jackson, spouse Contact Information [phone] Advance Directives? Yes Advance Directives on File No History Provided By Family Member Prior Living Arrangements House Household Members spouse Type of transporation used prior to Relies on Others admit Independent with ADL's Yes Is patient alert and oriented? 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
== END 2024-03-12 13:30 | disposition home or self-care (01) ==
LOC: ED 13:54 → AC 16:15
PROVIDERS: Admitting Provider Student in an Organized Health Care Education/Training Program; Emergency Provider Emergency Medicine; Family Provider Family Medicine; PCP Family Medicine; Referring Provider Emergency Medicine; Visit Provider Student in an Organized Health Care Education/Training Program
DX: R55 Syncope and collapse (principal); R00.1 Bradycardia, unspecified; F41.9 Anxiety disorder, unspecified; E78.5 Hyperlipidemia, unspecified
CPT/HCPCS: 36415; 70450; 70496; 70498; 71045; 80048; 80053; 83735; 84443; 84484; 85025; 85610; 93005; 93306; 99284; G0378; J1650